=== PATIENT | female | born 1930 | race Caucasian/White ===

== ENCOUNTER 2018-03-27 10:48 | Observation (INO) | payer MEDICARE, OTHER ==
[2018-03-27 11:54] LABS: ADD MAN DIFF? NO
[2018-03-27 11:55] LABS: WHITE BLOOD COUNT 8.5 10^3/ul (4.8-10.8)
[2018-03-27 11:55] LABS: BASOPHILS % 0.2 % (0.0-2.0); EOSINOPHILS # 0.2 10^3/ul (0.0-0.5); EOSINOPHILS % 2.6 % (0.0-7.0); HEMATOCRIT 36.6 % (37.0-47.0); HEMOGLOBIN 11.3 g/dl (12.0-16.0); LYMPHOCYTES # 1.2 10^3/ul (0.8-2.9); LYMPHOCYTES % 14.1 % (15.0-51.0); MEAN CORPUSCULAR HEMOGLOBIN 28.3 pg (29.0-33.0); MEAN CORPUSCULAR HGB CONC 30.9 g/dl (32.0-37.0); MEAN CORPUSCULAR VOLUME 91.7 fl (82.0-101.0); MEAN PLATELET VOLUME 9.4 fl (7.4-10.4); MONOCYTE # 0.5 10^3/ul (0.3-0.9); MONOCYTES % 6.3 % (0.0-11.0); NEUTROPHIL # 6.5 10^3/ul (1.6-7.5); NEUTROPHILS % 76.4 % (39.0-77.0); PLATELET COUNT 288 10^3/UL (140-415); RED BLOOD COUNT 3.99 10^6/ul (4.20-5.40); RED CELL DISTRIBUTION WIDTH 13.5 % (11.5-14.5)
[2018-03-27 12:13] LABS: ALANINE AMINOTRANSFERASE 8 IU/L (13-69); ALBUMIN 4.1 g/dl (3.3-4.9); ALBUMIN/GLOBULIN RATIO 1.07; ALKALINE PHOSPHATASE 81 IU/L (42-121); ANION GAP 8 (5-13); ASPARTATE AMINO TRANSFERASE 26 IU/L (15-46); BILIRUBIN,INDIRECT 0.3 mg/dl (0-1.1); BILIRUBIN,TOTAL 0.3 mg/dl (0.2-1.3); BLOOD UREA NITROGEN 11 mg/dl (7-20); CALCIUM 9.3 mg/dl (8.4-10.2); CARBON DIOXIDE 38 mmol/L (21-31); CHLORIDE 87 mmol/L (97-110); CREATININE 0.59 mg/dl (0.44-1.00); GLUCOSE 128 mg/dl (70-220); POTASSIUM 4.7 mmol/L (3.5-5.1); SODIUM 133 mmol/L (135-144); TOTAL PROTEIN 7.9 g/dl (6.1-8.1)
[2018-03-27 12:15] LABS: INR 0.89; PROTIME 12.2 Sec (11.9-14.9)
[2018-03-27 12:16] LABS: PARTIAL THROMBOPLASTIN TIME 38.1 Sec (23.0-35.0)
[2018-03-27 12:25] LABS: TROPONIN-I 0.016 ng/ml (0.000-0.120)
[2018-03-27] MEDS ORDERED: ACETAMINOPHEN 325 MG TAB PO (13:00)
[2018-03-27] MEDS ORDERED: ONDANSETRON 4 MG INJ IV ×2 (13:00→14:00)
[2018-03-27] MEDS ORDERED: ALBUTEROL/IPRATROPIUM (NEB) 3 ML AMP INH ×2 (14:00→15:00)
[2018-03-27] MEDS: SOD CHLORIDE 0.9% 1,000 ML IV (14:56)
[2018-03-27 16:56] LABS: LACTIC ACID 1.3 mmol/L (0.5-2.0)
[2018-03-27 16:57] LABS: CREATINE KINASE 21 IU/L (23-200)
[2018-03-27] MEDS ORDERED: hydrALAzine 20 MG INJ IV (17:00)
[2018-03-27 17:07] LABS: B-TYPE NATRIURETIC PEPTIDE 236 PG/ML (0-450)
[2018-03-27 17:09] LABS: CK INDEX 4.5; CK-MB 0.94 ng/ml (0.0-2.4); TROPONIN-I 0.055 ng/ml (0.000-0.120)
[2018-03-27] MEDS: FUROSEMIDE 20 MG INJ IV (17:51)
[2018-03-27] MEDS ORDERED: LEVOFLOXACIN 500MG/D5W (PMX) 100 ML IVPB (18:00)
[2018-03-27] MEDS: METHYLPREDNISOLONE 40 MG INJ IV (18:03)
[2018-03-27] MEDS: LEVOFLOXACIN 500MG/D5W (PMX) 100 ML IVPB (18:03)
[2018-03-27 18:31] LABS: ADD UMIC YES; UR AMORPHOUS CRYSTAL MANY /HPF (NONE SEEN); UR ASCORBIC ACID NEGATIVE (NEGATIVE); UR BACTERIA FEW /HPF (NONE SEEN); UR BILIRUBIN (Dip) NEGATIVE (NEGATIVE); UR BLOOD (Dip) NEGATIVE (NEGATIVE); UR CLARITY CLOUDY (CLEAR); UR COLOR YELLOW (YELLOW); UR GLUCOSE (Dip) NEGATIVE (NEGATIVE); UR KETONES (Dip) NEGATIVE (NEGATIVE); UR LEUKOCYTE ESTERASE (Dip) NEGATIVE Leu/ul (NEGATIVE); UR MUCUS FEW /HPF (NONE SEEN); UR NITRITE (Dip) NEGATIVE (NEGATIVE); UR RBC 2 /HPF (0-5); UR SQUAMOUS EPITHELIAL CELL FEW /HPF (FEW); UR TOTAL PROTEIN (Dip) NEGATIVE (NEGATIVE); UR UROBILINOGEN (Dip) NEGATIVE (NEGATIVE); UR WBC 2 /HPF (0-5)
[2018-03-27 18:48] LABS: SODIUM,URINE RANDOM 102 mmol/L (30-90)
[2018-03-27] MEDS: ALBUTEROL/IPRATROPIUM (NEB) 3 ML AMP HHN (20:05)
[2018-03-27] MEDS: BUDESONIDE (NEB) 0.25 MG/2 ML AMP INH (20:11)
[2018-03-27] MEDS ORDERED: FORMOTEROL FUMARATE 20 MCG INHALATION (21:00)
[2018-03-27] MEDS ORDERED: IPRATROPIUM (NEB) 0.5 MG/2.5 ML AMP HHN (21:00)
[2018-03-27] MEDS: FAMOTIDINE 20 MG TAB PO (21:59)
[2018-03-27] MEDS: ATORVASTATIN 10 MG TAB PO (21:59)
[2018-03-27 22:30] LABS: CREATINE KINASE 28 IU/L (23-200)
[2018-03-27] MEDS ORDERED: ARTIFICIAL TEARS 15 ML OPH BOTH EYES ×2 (22:30→23:00)
[2018-03-27 22:43] LABS: CK INDEX 2.9; CK-MB 0.82 ng/ml (0.0-2.4); TROPONIN-I 0.032 ng/ml (0.000-0.120)
[2018-03-28] MEDS: traZODone 50 MG TAB PO (00:39)
[2018-03-28] MEDS: ALBUTEROL/IPRATROPIUM (NEB) 3 ML AMP HHN ×4 (02:00→20:32)
[2018-03-28] MEDS: LEVOTHYROXINE 88 MCG TAB PO (06:15)
[2018-03-28] MEDS: BUDESONIDE (NEB) 0.25 MG/2 ML AMP INH ×2 (08:22→20:32)
[2018-03-28 08:27] LABS: ADD MAN DIFF? NO
[2018-03-28 08:33] LABS: BASOPHILS % 0.4 % (0.0-2.0); EOSINOPHILS # 0.3 10^3/ul (0.0-0.5); EOSINOPHILS % 4.8 % (0.0-7.0); HEMATOCRIT 32.6 % (37.0-47.0); HEMOGLOBIN 10.3 g/dl (12.0-16.0); LYMPHOCYTES # 1.5 10^3/ul (0.8-2.9); LYMPHOCYTES % 25.9 % (15.0-51.0); MEAN CORPUSCULAR HEMOGLOBIN 28.1 pg (29.0-33.0); MEAN CORPUSCULAR HGB CONC 31.6 g/dl (32.0-37.0); MEAN CORPUSCULAR VOLUME 89.1 fl (82.0-101.0); MEAN PLATELET VOLUME 9.1 fl (7.4-10.4); MONOCYTE # 0.5 10^3/ul (0.3-0.9); MONOCYTES % 8.7 % (0.0-11.0); NEUTROPHIL # 3.4 10^3/ul (1.6-7.5); NEUTROPHILS % 59.8 % (39.0-77.0); PLATELET COUNT 278 10^3/UL (140-415); RED BLOOD COUNT 3.66 10^6/ul (4.20-5.40); RED CELL DISTRIBUTION WIDTH 13.4 % (11.5-14.5)
[2018-03-28 08:33] LABS: WHITE BLOOD COUNT 5.6 10^3/ul (4.8-10.8)
[2018-03-28] MEDS: METHYLPREDNISOLONE 40 MG INJ IV (08:34)
[2018-03-28] MEDS: FAMOTIDINE 20 MG TAB PO ×2 (08:34→21:22)
[2018-03-28] MEDS: ASPIRIN 81 MG TAB PO (08:35)
[2018-03-28] MEDS: CHOLECALCIFEROL 1,000 UNIT TAB PO (08:35)
[2018-03-28 08:47] LABS: IRON 57 ug/dl (35-150)
[2018-03-28 08:47] LABS: LACTIC ACID 0.7 mmol/L (0.5-2.0)
[2018-03-28 08:50] LABS: ANION GAP 6 (5-13); BLOOD UREA NITROGEN 12 mg/dl (7-20); CALCIUM 8.7 mg/dl (8.4-10.2); CARBON DIOXIDE 37 mmol/L (21-31); CHLORIDE 87 mmol/L (97-110); CREATININE 0.54 mg/dl (0.44-1.00); GLUCOSE 101 mg/dl (70-220); MAGNESIUM 1.8 mg/dl (1.7-2.5); POTASSIUM 4.6 mmol/L (3.5-5.1); SODIUM 130 mmol/L (135-144)
[2018-03-28 08:57] LABS: % IRON SATURATION 22 % SAT (22-52); TOTAL IRON BINDING CAPACITY 257 ug/dl (241-421)
[2018-03-28 09:04] LABS: FREE T4 (FREE THYROXINE) 1.07 ng/dl (0.85-1.93)
[2018-03-28] MEDS: ENOXAPARIN 30 MG/0.3 ML SYG SC (09:09)
[2018-03-28] MEDS: INFLUENZA VIRUS VACCINE 0.5 ML (DISPENSING) IM* (09:11)
[2018-03-28] MEDS: LEVOFLOXACIN 250MG/D5W (PMX) 50 ML IVPB (18:00)
[2018-03-28] MEDS: FORMETEROL HHN (20:34)
[2018-03-28] MEDS: ATORVASTATIN 10 MG TAB PO (21:22)
[2018-03-28] MEDS: BENAZEPRIL 10 MG TAB PO (21:23)
[2018-03-29] MEDS: ALBUTEROL/IPRATROPIUM (NEB) 3 ML AMP HHN ×2 (02:50→08:28)
[2018-03-29] MEDS: LEVOTHYROXINE 88 MCG TAB PO (08:07)
[2018-03-29] MEDS: FAMOTIDINE 20 MG TAB PO (08:51)
[2018-03-29] MEDS: ASPIRIN 81 MG TAB PO (08:51)
[2018-03-29] MEDS: CHOLECALCIFEROL 1,000 UNIT TAB PO (08:52)
[2018-03-29] MEDS: METHYLPREDNISOLONE 40 MG INJ IV (08:52)
[2018-03-29] MEDS: BENAZEPRIL 10 MG TAB PO (08:52)
[2018-03-29] MEDS: ENOXAPARIN 30 MG/0.3 ML SYG SC (09:02)
== END 2018-03-29 10:16 | disposition home or self-care (01) ==
LOC: E/R 10:48 → TEL 12:50
DX: J84.112 Idiopathic pulmonary fibrosis (principal); E03.9 Hypothyroidism, unspecified; D64.9 Anemia, unspecified; R94.31 Abnormal electrocardiogram [ECG] [EKG]; E78.5 Hyperlipidemia, unspecified; E87.1 Hypo-osmolality and hyponatremia; F03.90 Unspecified dementia, unspecified severity, without behavioral disturbance, psychotic disturbance, mood disturbance, and anxiety; Z79.82 Long term (current) use of aspirin
CPT/HCPCS: 36415; 71045; 80048; 80053; 81001; 82550; 82553; 83540; 83605; 83735; 83880; 84300; 84439; 84443; 84484; 85025; 85610; 85730; 87040; 87086; 87400; 90686; 93005; 93306; 93880; 94640; 94664; 97161; 99285-25; G0378

== ENCOUNTER 2018-04-25 23:35 | Inpatient (IN) | payer MEDICARE, OTHER ==
[2018-04-25] MEDS: VANCOMYCIN 1 GM (PMX) 250 ML IVPB (23:52)
[2018-04-26] MEDS: ALBUTEROL 0.083% (NEB) 2.5 MG/3 ML AMP INH (00:15)
[2018-04-26 00:16] LABS: ADD MAN DIFF? NO
[2018-04-26 00:17] LABS: BASOPHILS % 0.3 % (0.0-2.0); EOSINOPHILS % 0.5 % (0.0-7.0); HEMOGLOBIN 11.4 g/dl (12.0-16.0); LYMPHOCYTES # 0.8 10^3/ul (0.8-2.9); LYMPHOCYTES % 12.8 % (15.0-51.0); MEAN CORPUSCULAR HEMOGLOBIN 28.1 pg (29.0-33.0); MEAN CORPUSCULAR HGB CONC 31.7 g/dl (32.0-37.0); MEAN CORPUSCULAR VOLUME 88.9 fl (82.0-101.0); MEAN PLATELET VOLUME 8.9 fl (7.4-10.4); MONOCYTE # 0.7 10^3/ul (0.3-0.9); MONOCYTES % 11.4 % (0.0-11.0); NEUTROPHIL # 4.8 10^3/ul (1.6-7.5); NEUTROPHILS % 74.5 % (39.0-77.0); PLATELET COUNT 263 10^3/UL (140-415); RED BLOOD COUNT 4.05 10^6/ul (4.20-5.40); RED CELL DISTRIBUTION WIDTH 13.3 % (11.5-14.5)
[2018-04-26 00:17] LABS: WHITE BLOOD COUNT 6.4 10^3/ul (4.8-10.8)
[2018-04-26] MEDS: CEFEPIME 1GM/50 ML (PMX) 50 ML IVPB (00:20)
[2018-04-26 00:49] LABS: ALANINE AMINOTRANSFERASE 23 IU/L (13-69); ALBUMIN 3.7 g/dl (3.3-4.9); ALBUMIN/GLOBULIN RATIO 1.02; ALKALINE PHOSPHATASE 84 IU/L (42-121); ASPARTATE AMINO TRANSFERASE 37 IU/L (15-46); BILIRUBIN,INDIRECT 0.2 mg/dl (0-1.1); BILIRUBIN,TOTAL 0.2 mg/dl (0.2-1.3); BLOOD UREA NITROGEN 16 mg/dl (7-20); CALCIUM 8.7 mg/dl (8.4-10.2); CHLORIDE 77 mmol/L (97-110); GLUCOSE 97 mg/dl (70-220); POTASSIUM 5.7 mmol/L (3.5-5.1); TOTAL PROTEIN 7.3 g/dl (6.1-8.1)
[2018-04-26 00:56] LABS: ANION GAP 3 (5-13)
[2018-04-26 01:00] LABS: B-TYPE NATRIURETIC PEPTIDE 1060 PG/ML (0-450); TROPONIN-I 0.046 ng/ml (0.000-0.120)
[2018-04-26 01:05] LABS: CARBON DIOXIDE 39 mmol/L (21-31); SODIUM 119 mmol/L (135-144)
[2018-04-26] MEDS: SOD CHLORIDE 0.9% 500 ML IV (02:05)
[2018-04-26] MEDS ORDERED: ONDANSETRON 4 MG INJ IV ×2 (02:30→03:00)
[2018-04-26] MEDS ORDERED: ACETAMINOPHEN 325 MG TAB PO ×2 (02:30→03:00)
[2018-04-26] MEDS ORDERED: NACL 0.9% 3 ML SYG IV (03:00)
[2018-04-26] MEDS: SOD CHLORIDE 0.9% 1,000 ML IV (05:29)
[2018-04-26 05:42] LABS: ADD MAN DIFF? NO
[2018-04-26 05:44] LABS: WHITE BLOOD COUNT 6.2 10^3/ul (4.8-10.8)
[2018-04-26 05:44] LABS: ABNORMAL IP MESSAGE 1; BASOPHILS % 0.5 % (0.0-2.0); EOSINOPHILS % 0.3 % (0.0-7.0); HEMATOCRIT 37.3 % (37.0-47.0); HEMOGLOBIN 11.5 g/dl (12.0-16.0); LYMPHOCYTES # 0.5 10^3/ul (0.8-2.9); MEAN CORPUSCULAR HEMOGLOBIN 28.1 pg (29.0-33.0); MEAN CORPUSCULAR HGB CONC 30.8 g/dl (32.0-37.0); MEAN CORPUSCULAR VOLUME 91.2 fl (82.0-101.0); MEAN PLATELET VOLUME 8.7 fl (7.4-10.4); MONOCYTE # 0.6 10^3/ul (0.3-0.9); MONOCYTES % 9.1 % (0.0-11.0); NEUTROPHILS % 81.8 % (39.0-77.0); PLATELET COUNT 240 10^3/UL (140-415); RED BLOOD COUNT 4.09 10^6/ul (4.20-5.40); RED CELL DISTRIBUTION WIDTH 13.5 % (11.5-14.5)
[2018-04-26 05:49] LABS: POSITIVE DIFF @See below
[2018-04-26 05:55] LABS: URIC ACID 3.1 mg/dl (3.1-7.9)
[2018-04-26 06:08] LABS: ALANINE AMINOTRANSFERASE 21 IU/L (13-69); ALBUMIN 3.6 g/dl (3.3-4.9); ALBUMIN/GLOBULIN RATIO 1.02; ALKALINE PHOSPHATASE 88 IU/L (42-121); ASPARTATE AMINO TRANSFERASE 31 IU/L (15-46); BILIRUBIN,INDIRECT 0.1 mg/dl (0-1.1); BILIRUBIN,TOTAL 0.1 mg/dl (0.2-1.3); BLOOD UREA NITROGEN 14 mg/dl (7-20); CALCIUM 8.6 mg/dl (8.4-10.2); CHLORIDE 79 mmol/L (97-110); CHOL/HDL RATIO 1.7 RATIO; CHOLESTEROL 106 mg/dl (100-200); CREATININE 0.52 mg/dl (0.44-1.00); GLUCOSE 111 mg/dl (70-220); HDL CHOLESTEROL 59 mg/dl (33-92); LDL CHOLESTEROL,CALCULATED 40 mg/dl; POTASSIUM 4.9 mmol/L (3.5-5.1); SODIUM 123 mmol/L (135-144); TOTAL PROTEIN 7.1 g/dl (6.1-8.1); TRIGLYCERIDES 35 mg/dl (0-149)
[2018-04-26] MEDS: LEVOTHYROXINE 88 MCG TAB PO (06:13)
[2018-04-26 06:19] LABS: ANION GAP 3 (5-13); CARBON DIOXIDE 41 mmol/L (21-31)
[2018-04-26 06:22] LABS: OSMOLALITY 260 mOsm/kg (280-295)
[2018-04-26] MEDS: ALBUTEROL/IPRATROPIUM (NEB) 3 ML AMP INH ×3 (08:06→21:03)
[2018-04-26] MEDS: ASPIRIN (EC) 325 MG TAB PO (08:47)
[2018-04-26 08:48] LABS: AADO2 Arterial 40.6 mmHg (7.0-24.0); Arterial Base Excess 9.2 mmol/L (-3.0-3); Arterial Blood Gas Oxygen Sat 97.8 mmHG (95.0-100.0); Arterial COHb 0.4 % (0.0-3.0); Arterial Fraction of Oxyhgb 97.1 % (93.0-99.0); Arterial HCO3 39.5 mmol/L (22.0-26.0); Arterial MetHb 0.3 % (0.0-1.5); Arterial pCO2 91.4 mmhg (35-45); MODE NASAL CANNULA; Site Right Brachial
[2018-04-26] MEDS: CHOLECALCIFEROL 1,000 UNIT TAB PO (08:48)
[2018-04-26] MEDS ORDERED: METHYLPREDNISOLONE 125 MG INJ IV (09:00)
[2018-04-26] MEDS ORDERED: ARFORMOTEROL TARTRATE 15MCG/2 ML AMP INH (09:00)
[2018-04-26] MEDS ORDERED: IPRATROPIUM (NEB) 0.5 MG/2.5 ML AMP INH (09:00)
[2018-04-26 09:09] LABS: URIC ACID 3.3 mg/dl (3.1-7.9)
[2018-04-26] MEDS ORDERED: METHYLPREDNISOLONE 40 MG INJ IV (10:00)
[2018-04-26] MEDS ORDERED: ALBUTEROL/IPRATROPIUM (NEB) 3 ML AMP HHN (10:00)
[2018-04-26] MEDS: METHYLPREDNISOLONE 125 MG INJ IV (10:29)
[2018-04-26] MEDS: FUROSEMIDE 20 MG INJ IV (10:30)
[2018-04-26] MEDS: PIPER-TAZO 3.375 GM IV (PMX) 100 ML IVPB ×3 (11:17→23:31)
[2018-04-26 12:11] LABS: BLOOD UREA NITROGEN 13 mg/dl (7-20); CALCIUM 8.4 mg/dl (8.4-10.2); CHLORIDE 81 mmol/L (97-110); CREATININE 0.53 mg/dl (0.44-1.00); GLUCOSE 108 mg/dl (70-220); POTASSIUM 5.2 mmol/L (3.5-5.1); SODIUM 126 mmol/L (135-144)
[2018-04-26 12:18] LABS: ANION GAP 10 (5-13)
[2018-04-26 12:23] LABS: CARBON DIOXIDE 35 mmol/L (21-31)
[2018-04-26 14:36] LABS: ADD UMIC NO; UR ASCORBIC ACID NEGATIVE (NEGATIVE); UR BILIRUBIN (Dip) NEGATIVE (NEGATIVE); UR BLOOD (Dip) NEGATIVE (NEGATIVE); UR CLARITY CLEAR (CLEAR); UR COLOR YELLOW (YELLOW); UR GLUCOSE (Dip) NEGATIVE (NEGATIVE); UR KETONES (Dip) NEGATIVE (NEGATIVE); UR LEUKOCYTE ESTERASE (Dip) NEGATIVE Leu/ul (NEGATIVE); UR NITRITE (Dip) NEGATIVE (NEGATIVE); UR TOTAL PROTEIN (Dip) NEGATIVE (NEGATIVE); UR UROBILINOGEN (Dip) NEGATIVE (NEGATIVE)
[2018-04-26 14:55] LABS: POTASSIUM,URINE RANDOM 44.9 mmol/L (25-125)
[2018-04-26 14:55] LABS: SODIUM,URINE RANDOM 81 mmol/L (30-90)
[2018-04-26 15:05] LABS: OSMOLALITY,URINE 382 mOsm/kg (250-1200)
[2018-04-26 15:07] LABS: AMPHETAMINE/METHAMPHETAMINE Negative (NEGATIVE); BARBITURATES Negative (NEGATIVE); BENZODIAZEPINES Negative (NEGATIVE); CANNABINOIDS Negative (NEGATIVE); COCAINE Negative (NEGATIVE); OPIATES Negative (NEGATIVE)
[2018-04-26 15:16] LABS: SODIUM,URINE RANDOM 82 mmol/L (30-90)
[2018-04-26 15:16] LABS: CREATININE,URINE RANDOM 35.35 mg/dl (20-320)
[2018-04-26 16:11] LABS: AADO2 Arterial 164.3 mmHg (7.0-24.0); Allen Test ACCEPTAB; Arterial Base Excess 10.2 mmol/L (-3.0-3); Arterial Blood Gas Oxygen Sat 96.5 mmHG (95.0-100.0); Arterial COHb 0.8 % (0.0-3.0); Arterial Fraction of Oxyhgb 95.4 % (93.0-99.0); Arterial HCO3 40.9 mmol/L (22.0-26.0); Arterial MetHb 0.3 % (0.0-1.5); Arterial pCO2 92.3 mmhg (35-45); Blood Gas IEPAP 15/5; Blood Gas PS 10; MODE MASK - BIPAP; Site Right Radial
[2018-04-26] MEDS: BUDESONIDE (NEB) 0.25 MG/2 ML AMP INH ×2 (16:34→21:03)
[2018-04-26] MEDS: DEXTROSE 5%-0.9% NACL 1,000 ML IV (16:36)
[2018-04-26 20:49] LABS: AADO2 Arterial 87.9 mmHg (7.0-24.0); Allen Test ACCEPTAB; Arterial Base Excess 11.1 mmol/L (-3.0-3); Arterial Blood Gas Oxygen Sat 96.2 mmHG (95.0-100.0); Arterial COHb 0.3 % (0.0-3.0); Arterial Fraction of Oxyhgb 95.6 % (93.0-99.0); Arterial HCO3 41.7 mmol/L (22.0-26.0); Arterial MetHb 0.3 % (0.0-1.5); Arterial pCO2 95.6 mmhg (35-45); Blood Gas IEPAP 20/8; Blood Gas PS 13; MODE MASK - BIPAP; Site Left Radial
[2018-04-26] MEDS ORDERED: NON-FORMULARY/PATIENT OWN MED (Simvastatin* (Zocor*) 20 MG) PO (21:00)
[2018-04-26] MEDS: ATORVASTATIN 10 MG TAB PO (21:00)
[2018-04-26] MEDS: METHYLPREDNISOLONE 40 MG INJ IV (21:33)
[2018-04-27] MEDS ORDERED: VANCOMYCIN IV PER PHARMACY XX (01:00)
[2018-04-27] MEDS: VANCOMYCIN 1 GM 250 ML IVPB (01:24)
[2018-04-27] MEDS: ALBUTEROL/IPRATROPIUM (NEB) 3 ML AMP INH ×4 (02:02→20:09)
[2018-04-27] MEDS: PIPER-TAZO 3.375 GM IV (PMX) 100 ML IVPB ×3 (05:12→18:01)
[2018-04-27 05:13] LABS: WHITE BLOOD COUNT 4.1 10^3/ul (4.8-10.8)
[2018-04-27 05:13] LABS: ABNORMAL IP MESSAGE 1; ADD MAN DIFF? NO; HEMATOCRIT 32.9 % (37.0-47.0); HEMOGLOBIN 10.2 g/dl (12.0-16.0); LYMPHOCYTES # 0.3 10^3/ul (0.8-2.9); LYMPHOCYTES % 7.2 % (15.0-51.0); MEAN CORPUSCULAR HEMOGLOBIN 27.7 pg (29.0-33.0); MEAN CORPUSCULAR VOLUME 89.4 fl (82.0-101.0); MEAN PLATELET VOLUME 9.2 fl (7.4-10.4); MONOCYTE # 0.1 10^3/ul (0.3-0.9); MONOCYTES % 2.7 % (0.0-11.0); NEUTROPHIL # 3.6 10^3/ul (1.6-7.5); NEUTROPHILS % 89.6 % (39.0-77.0); PLATELET COUNT 242 10^3/UL (140-415); RED BLOOD COUNT 3.68 10^6/ul (4.20-5.40); RED CELL DISTRIBUTION WIDTH 13.2 % (11.5-14.5)
[2018-04-27 05:36] LABS: POSITIVE DIFF @See below
[2018-04-27 05:46] LABS: BLOOD UREA NITROGEN 15 mg/dl (7-20); CALCIUM 8.3 mg/dl (8.4-10.2); CHLORIDE 80 mmol/L (97-110); CREATININE 0.52 mg/dl (0.44-1.00); GLUCOSE 139 mg/dl (70-220); MAGNESIUM 1.9 mg/dl (1.7-2.5); PHOSPHORUS 3.7 mg/dl (2.5-4.9); POTASSIUM 4.5 mmol/L (3.5-5.1); SODIUM 126 mmol/L (135-144)
[2018-04-27 05:53] LABS: ANION GAP 6 (5-13)
[2018-04-27 06:06] LABS: CARBON DIOXIDE 40 mmol/L (21-31)
[2018-04-27] MEDS: ASPIRIN (EC) 325 MG TAB PO (08:23)
[2018-04-27] MEDS: DEXTROSE 5%-0.9% NACL 1,000 ML IV (08:23)
[2018-04-27] MEDS: METHYLPREDNISOLONE 40 MG INJ IV (08:23)
[2018-04-27] MEDS: CHOLECALCIFEROL 1,000 UNIT TAB PO (08:24)
[2018-04-27] MEDS: LEVOTHYROXINE 88 MCG TAB PO (08:24)
[2018-04-27] MEDS: ENOXAPARIN 40 MG/0.4 ML SYG SC (08:25)
[2018-04-27 09:05] LABS: AADO2 Arterial 118.1 mmHg (7.0-24.0); Allen Test ACCEPTAB; Arterial Base Excess 14.7 mmol/L (-3.0-3); Arterial Blood Gas Oxygen Sat 94.9 mmHG (95.0-100.0); Arterial COHb 0.5 % (0.0-3.0); Arterial Fraction of Oxyhgb 94.2 % (93.0-99.0); Arterial HCO3 43.1 mmol/L (22.0-26.0); Arterial MetHb 0.2 % (0.0-1.5); Blood Gas IEPAP 20/8; Blood Gas PS 12; MODE MASK - BIPAP; Site Right Radial
[2018-04-27] MEDS: BUMETANIDE 1 MG INJ IV (10:07)
[2018-04-27] MEDS: BUDESONIDE (NEB) 0.25 MG/2 ML AMP INH ×2 (11:56→20:00)
[2018-04-27] MEDS ORDERED: METHYLPREDNISOLONE 40 MG INJ IV (21:00)
[2018-04-27] MEDS: SOD CHLORIDE 0.9% IV (21:47)
[2018-04-27] MEDS: METHYLPRED NA SUCC IV (21:47)
[2018-04-27] MEDS: ATORVASTATIN 10 MG TAB PO (21:47)
[2018-04-28] MEDS: PIPER-TAZO 3.375 GM IV (PMX) 100 ML IVPB ×5 (00:40→23:33)
[2018-04-28] MEDS: ALBUTEROL/IPRATROPIUM (NEB) 3 ML AMP INH ×4 (01:48→19:49)
[2018-04-28 05:08] LABS: AADO2 Arterial 108.7 mmHg (7.0-24.0); Allen Test ACCEPTAB; Arterial Base Excess 13.8 mmol/L (-3.0-3); Arterial Blood Gas Oxygen Sat 97.8 mmHG (95.0-100.0); Arterial COHb 0.9 % (0.0-3.0); Arterial Fraction of Oxyhgb 96.7 % (93.0-99.0); Arterial MetHb 0.2 % (0.0-1.5); Arterial pCO2 68.8 mmhg (35-45); Blood Gas IEPAP 20/8; Blood Gas PS 12; MODE BIPAP - S/T; Site Left Radial
[2018-04-28 05:22] LABS: ADD MAN DIFF? NO
[2018-04-28 05:42] LABS: ABNORMAL IP MESSAGE 1; HEMOGLOBIN 10.2 g/dl (12.0-16.0); LYMPHOCYTES # 0.2 10^3/ul (0.8-2.9); LYMPHOCYTES % 3.5 % (15.0-51.0); MEAN CORPUSCULAR HEMOGLOBIN 27.6 pg (29.0-33.0); MEAN CORPUSCULAR HGB CONC 30.9 g/dl (32.0-37.0); MEAN CORPUSCULAR VOLUME 89.4 fl (82.0-101.0); MEAN PLATELET VOLUME 9.1 fl (7.4-10.4); MONOCYTE # 0.1 10^3/ul (0.3-0.9); NEUTROPHIL # 5.1 10^3/ul (1.6-7.5); NEUTROPHILS % 94.1 % (39.0-77.0); PLATELET COUNT 248 10^3/UL (140-415); RED BLOOD COUNT 3.69 10^6/ul (4.20-5.40); RED CELL DISTRIBUTION WIDTH 13.2 % (11.5-14.5)
[2018-04-28 05:42] LABS: WHITE BLOOD COUNT 5.4 10^3/ul (4.8-10.8)
[2018-04-28 06:06] LABS: BLOOD UREA NITROGEN 18 mg/dl (7-20); CALCIUM 8.4 mg/dl (8.4-10.2); CHLORIDE 78 mmol/L (97-110); CREATININE 0.52 mg/dl (0.44-1.00); GLUCOSE 139 mg/dl (70-220); MAGNESIUM 1.8 mg/dl (1.7-2.5); POTASSIUM 3.9 mmol/L (3.5-5.1); SODIUM 128 mmol/L (135-144)
[2018-04-28 06:12] LABS: POSITIVE DIFF @See below
[2018-04-28 06:29] LABS: ANION GAP 6 (5-13); CARBON DIOXIDE 44 mmol/L (21-31)
[2018-04-28 06:36] LABS: VANCOMYCIN,RANDOM 5.2 ug/ml
[2018-04-28] MEDS: LEVOTHYROXINE 88 MCG TAB PO (08:55)
[2018-04-28] MEDS: CHOLECALCIFEROL 1,000 UNIT TAB PO (08:55)
[2018-04-28] MEDS: ASPIRIN (EC) 325 MG TAB PO (08:55)
[2018-04-28] MEDS: SOD CHLORIDE 0.9% IV ×2 (08:55→21:06)
[2018-04-28] MEDS: METHYLPRED NA SUCC IV ×2 (08:55→21:06)
[2018-04-28] MEDS: ENOXAPARIN 40 MG/0.4 ML SYG SC (08:56)
[2018-04-28] MEDS ORDERED: BUDESONIDE (NEB) 0.5MG/2ML AMP (09:00)
[2018-04-28] MEDS: BUDESONIDE (NEB) 0.5MG/2ML AMP INH ×2 (09:06→19:49)
[2018-04-28] MEDS: VANCOMYCIN 1 GM 250 ML IVPB (10:15)
[2018-04-28] MEDS: ATORVASTATIN 10 MG TAB PO (21:06)
[2018-04-28] MEDS: BALSAM PERU/CASTOR OIL 60 GM TUBE TOP (22:30)
[2018-04-29] MEDS: ALBUTEROL/IPRATROPIUM (NEB) 3 ML AMP INH ×4 (02:18→19:34)
[2018-04-29 04:52] LABS: AADO2 Arterial 97.8 mmHg (7.0-24.0); Allen Test ACCEPTAB; Arterial Base Excess 15.8 mmol/L (-3.0-3); Arterial Blood Gas Oxygen Sat 97.6 mmHG (95.0-100.0); Arterial COHb 0.8 % (0.0-3.0); Arterial Fraction of Oxyhgb 96.4 % (93.0-99.0); Arterial HCO3 44.6 mmol/L (22.0-26.0); Arterial MetHb 0.4 % (0.0-1.5); Arterial pCO2 77.5 mmhg (35-45); Blood Gas IEPAP 20/8; MODE MASK - BIPAP; Site Right Radial
[2018-04-29 05:18] LABS: ADD MAN DIFF? NO
[2018-04-29 05:31] LABS: WHITE BLOOD COUNT 4.6 10^3/ul (4.8-10.8)
[2018-04-29 05:31] LABS: ABNORMAL IP MESSAGE 1; HEMATOCRIT 33.7 % (37.0-47.0); HEMOGLOBIN 10.4 g/dl (12.0-16.0); LYMPHOCYTES # 0.2 10^3/ul (0.8-2.9); MEAN CORPUSCULAR HEMOGLOBIN 27.7 pg (29.0-33.0); MEAN CORPUSCULAR HGB CONC 30.9 g/dl (32.0-37.0); MEAN CORPUSCULAR VOLUME 89.6 fl (82.0-101.0); MEAN PLATELET VOLUME 8.9 fl (7.4-10.4); MONOCYTE # 0.2 10^3/ul (0.3-0.9); MONOCYTES % 3.2 % (0.0-11.0); NEUTROPHIL # 4.2 10^3/ul (1.6-7.5); NEUTROPHILS % 91.6 % (39.0-77.0); PLATELET COUNT 223 10^3/UL (140-415); RED BLOOD COUNT 3.76 10^6/ul (4.20-5.40); RED CELL DISTRIBUTION WIDTH 13.2 % (11.5-14.5)
[2018-04-29 05:44] LABS: LYMPHOCYTES % 4.8 % (15.0-51.0); POSITIVE DIFF @See below
[2018-04-29 05:49] LABS: BLOOD UREA NITROGEN 13 mg/dl (7-20); CALCIUM 8.3 mg/dl (8.4-10.2); CHLORIDE 79 mmol/L (97-110); CREATININE 0.51 mg/dl (0.44-1.00); GLUCOSE 146 mg/dl (70-220); MAGNESIUM 1.9 mg/dl (1.7-2.5); PHOSPHORUS 2.8 mg/dl (2.5-4.9); POTASSIUM 3.5 mmol/L (3.5-5.1); SODIUM 132 mmol/L (135-144)
[2018-04-29 06:28] LABS: ANION GAP 9 (5-13); CARBON DIOXIDE 44 mmol/L (21-31)
[2018-04-29] MEDS: PIPER-TAZO 3.375 GM IV (PMX) 100 ML IVPB ×3 (08:00→17:43)
[2018-04-29] MEDS: BUDESONIDE (NEB) 0.5MG/2ML AMP INH ×2 (08:40→19:34)
[2018-04-29] MEDS: DEXTROSE 5%-0.9% NACL 1,000 ML IV (09:58)
[2018-04-29] MEDS: POTASSIUM CHLORIDE 100 ML IVPB ×2 (09:59→12:05)
[2018-04-29] MEDS: LEVOTHYROXINE 88 MCG TAB PO (09:59)
[2018-04-29] MEDS: CHOLECALCIFEROL 1,000 UNIT TAB PO (09:59)
[2018-04-29] MEDS: ASPIRIN (EC) 325 MG TAB PO (09:59)
[2018-04-29] MEDS: BALSAM PERU/CASTOR OIL 60 GM TUBE TOP ×2 (09:59→20:05)
[2018-04-29] MEDS: VANCOMYCIN 1 GM 250 ML IVPB (10:00)
[2018-04-29] MEDS: METHYLPRED NA SUCC IV ×2 (10:02→20:05)
[2018-04-29] MEDS: SOD CHLORIDE 0.9% IV ×2 (10:02→20:05)
[2018-04-29] MEDS: ENOXAPARIN 40 MG/0.4 ML SYG SC (10:12)
[2018-04-29 13:05] LABS: CREATININE, RANDOM URINE 37 mg/dL (20-275); MICROALBUMIN 5.8 mg/dL; MICROALBUMIN/CREATININE RATIO 157 (<30)
[2018-04-29] MEDS: ATORVASTATIN 10 MG TAB PO (20:05)
[2018-04-30] MEDS: PIPER-TAZO 3.375 GM IV (PMX) 100 ML IVPB ×5 (00:07→23:53)
[2018-04-30] MEDS: ALBUTEROL/IPRATROPIUM (NEB) 3 ML AMP INH ×4 (01:49→20:05)
[2018-04-30 05:24] LABS: ADD MAN DIFF? NO
[2018-04-30 05:34] LABS: ABNORMAL IP MESSAGE 1; HEMATOCRIT 34.2 % (37.0-47.0); HEMOGLOBIN 10.6 g/dl (12.0-16.0); LYMPHOCYTES # 0.2 10^3/ul (0.8-2.9); LYMPHOCYTES % 4.9 % (15.0-51.0); MEAN CORPUSCULAR HEMOGLOBIN 27.6 pg (29.0-33.0); MEAN CORPUSCULAR VOLUME 89.1 fl (82.0-101.0); MONOCYTE # 0.2 10^3/ul (0.3-0.9); MONOCYTES % 4.3 % (0.0-11.0); NEUTROPHIL # 4.2 10^3/ul (1.6-7.5); NEUTROPHILS % 90.2 % (39.0-77.0); PLATELET COUNT 203 10^3/UL (140-415); RED BLOOD COUNT 3.84 10^6/ul (4.20-5.40); RED CELL DISTRIBUTION WIDTH 13.4 % (11.5-14.5)
[2018-04-30 05:34] LABS: WHITE BLOOD COUNT 4.7 10^3/ul (4.8-10.8)
[2018-04-30 05:44] LABS: POSITIVE DIFF @See below
[2018-04-30 05:49] LABS: BLOOD UREA NITROGEN 15 mg/dl (7-20); CALCIUM 8.4 mg/dl (8.4-10.2); CHLORIDE 83 mmol/L (97-110); CREATININE 0.49 mg/dl (0.44-1.00); GLUCOSE 164 mg/dl (70-220); MAGNESIUM 1.9 mg/dl (1.7-2.5); PHOSPHORUS 2.3 mg/dl (2.5-4.9); POTASSIUM 3.6 mmol/L (3.5-5.1); SODIUM 134 mmol/L (135-144)
[2018-04-30 05:58] LABS: ANION GAP 6 (5-13); CARBON DIOXIDE 45 mmol/L (21-31)
[2018-04-30] MEDS: LEVOTHYROXINE 88 MCG TAB PO (06:27)
[2018-04-30] MEDS: BUDESONIDE (NEB) 0.5MG/2ML AMP INH ×2 (07:29→20:05)
[2018-04-30] MEDS: CHOLECALCIFEROL 1,000 UNIT TAB PO (08:14)
[2018-04-30] MEDS: ASPIRIN (EC) 325 MG TAB PO (08:14)
[2018-04-30] MEDS: NEUTRA-PHOS 250 MG PACKET PO (08:14)
[2018-04-30] MEDS: ENOXAPARIN 40 MG/0.4 ML SYG SC (08:15)
[2018-04-30] MEDS: BALSAM PERU/CASTOR OIL 60 GM TUBE TOP ×2 (08:15→22:27)
[2018-04-30] MEDS: SOD CHLORIDE 0.9% IV ×2 (08:15→22:42)
[2018-04-30] MEDS: METHYLPRED NA SUCC IV ×2 (08:15→22:42)
[2018-04-30] MEDS: VANCOMYCIN 1 GM 250 ML IVPB (10:38)
[2018-04-30 11:04] LABS: VANCOMYCIN,TROUGH < 5.0 ug/ml (10.0-20.0)
[2018-04-30] MEDS ORDERED: hydrALAzine 20 MG INJ (12:49)
[2018-04-30] MEDS: hydrALAzine 20 MG INJ IV (12:53)
[2018-04-30] MEDS: POTASSIUM CHLORIDE 100 ML IVPB ×2 (14:05→16:23)
[2018-04-30] MEDS: ATORVASTATIN 10 MG TAB PO (22:27)
[2018-05-01] MEDS: VANCOMYCIN 750 MG (PMX) 250 ML IVPB ×2 (00:36→10:31)
[2018-05-01] MEDS: ALBUTEROL/IPRATROPIUM (NEB) 3 ML AMP INH ×4 (01:18→20:30)
[2018-05-01] MEDS: PIPER-TAZO 3.375 GM IV (PMX) 100 ML IVPB ×4 (06:24→23:26)
[2018-05-01] MEDS: BUDESONIDE (NEB) 0.5MG/2ML AMP INH ×2 (08:01→20:30)
[2018-05-01 08:07] LABS: ADD MAN DIFF? NO
[2018-05-01 08:18] LABS: WHITE BLOOD COUNT 6.3 10^3/ul (4.8-10.8)
[2018-05-01 08:18] LABS: ABNORMAL IP MESSAGE 1; HEMATOCRIT 35.5 % (37.0-47.0); HEMOGLOBIN 11.1 g/dl (12.0-16.0); LYMPHOCYTES # 0.4 10^3/ul (0.8-2.9); LYMPHOCYTES % 6.6 % (15.0-51.0); MEAN CORPUSCULAR HEMOGLOBIN 27.6 pg (29.0-33.0); MEAN CORPUSCULAR HGB CONC 31.3 g/dl (32.0-37.0); MEAN CORPUSCULAR VOLUME 88.3 fl (82.0-101.0); MEAN PLATELET VOLUME 9.7 fl (7.4-10.4); MONOCYTE # 0.2 10^3/ul (0.3-0.9); MONOCYTES % 2.6 % (0.0-11.0); NEUTROPHIL # 5.6 10^3/ul (1.6-7.5); NEUTROPHILS % 89.8 % (39.0-77.0); PLATELET COUNT 220 10^3/UL (140-415); RED BLOOD COUNT 4.02 10^6/ul (4.20-5.40); RED CELL DISTRIBUTION WIDTH 13.5 % (11.5-14.5)
[2018-05-01 08:21] LABS: POSITIVE DIFF @See below
[2018-05-01 08:30] LABS: BLOOD UREA NITROGEN 14 mg/dl (7-20); CALCIUM 8.4 mg/dl (8.4-10.2); CHLORIDE 84 mmol/L (97-110); CREATININE 0.53 mg/dl (0.44-1.00); GLUCOSE 138 mg/dl (70-220); MAGNESIUM 1.8 mg/dl (1.7-2.5); PHOSPHORUS 3.2 mg/dl (2.5-4.9); POTASSIUM 4.1 mmol/L (3.5-5.1); SODIUM 133 mmol/L (135-144)
[2018-05-01 08:37] LABS: ANION GAP 9 (5-13)
[2018-05-01 08:39] LABS: CARBON DIOXIDE 40 mmol/L (21-31)
[2018-05-01] MEDS: ASPIRIN (EC) 325 MG TAB PO (09:34)
[2018-05-01] MEDS: CHOLECALCIFEROL 1,000 UNIT TAB PO (09:35)
[2018-05-01] MEDS: BALSAM PERU/CASTOR OIL 60 GM TUBE TOP ×2 (09:35→20:17)
[2018-05-01] MEDS: LEVOTHYROXINE 88 MCG TAB PO (09:35)
[2018-05-01] MEDS: ENOXAPARIN 40 MG/0.4 ML SYG SC (09:45)
[2018-05-01] MEDS ORDERED: DOCUSATE SODIUM 100 MG CAP PO (10:30)
[2018-05-01] MEDS: POLYETHYLENE GLYCOL 17 GM PACKET PO (10:31)
[2018-05-01] MEDS: SOD CHLORIDE 0.9% IV ×2 (11:52→20:17)
[2018-05-01] MEDS: METHYLPRED NA SUCC IV ×2 (11:52→20:17)
[2018-05-01] MEDS: hydrALAzine 20 MG INJ IV (18:50)
[2018-05-01] MEDS: ATORVASTATIN 10 MG TAB PO (20:16)
[2018-05-02] MEDS: ALBUTEROL/IPRATROPIUM (NEB) 3 ML AMP INH ×4 (01:29→19:44)
[2018-05-02] MEDS: PIPER-TAZO 3.375 GM IV (PMX) 100 ML IVPB ×2 (05:49→11:19)
[2018-05-02] MEDS: BUDESONIDE (NEB) 0.5MG/2ML AMP INH ×2 (08:14→19:44)
[2018-05-02] MEDS: CHOLECALCIFEROL 1,000 UNIT TAB PO (08:54)
[2018-05-02] MEDS: BALSAM PERU/CASTOR OIL 60 GM TUBE TOP ×2 (08:54→21:46)
[2018-05-02] MEDS: LEVOTHYROXINE 88 MCG TAB PO (08:54)
[2018-05-02] MEDS: ASPIRIN (EC) 325 MG TAB PO (08:54)
[2018-05-02] MEDS: POLYETHYLENE GLYCOL 17 GM PACKET PO (08:55)
[2018-05-02] MEDS: SOD CHLORIDE 0.9% IV (08:59)
[2018-05-02] MEDS: METHYLPRED NA SUCC IV (08:59)
[2018-05-02] MEDS: ENOXAPARIN 40 MG/0.4 ML SYG SC (09:11)
[2018-05-02 10:33] LABS: ADD MAN DIFF? NO
[2018-05-02 10:36] LABS: WHITE BLOOD COUNT 7.2 10^3/ul (4.8-10.8)
[2018-05-02 10:36] LABS: ABNORMAL IP MESSAGE 1; BASOPHILS % 0.1 % (0.0-2.0); HEMATOCRIT 37.7 % (37.0-47.0); LYMPHOCYTES # 0.4 10^3/ul (0.8-2.9); LYMPHOCYTES % 5.3 % (15.0-51.0); MEAN CORPUSCULAR HEMOGLOBIN 27.4 pg (29.0-33.0); MEAN CORPUSCULAR HGB CONC 31.8 g/dl (32.0-37.0); MEAN CORPUSCULAR VOLUME 86.1 fl (82.0-101.0); MEAN PLATELET VOLUME 9.3 fl (7.4-10.4); MONOCYTE # 0.4 10^3/ul (0.3-0.9); NEUTROPHIL # 6.4 10^3/ul (1.6-7.5); NEUTROPHILS % 88.8 % (39.0-77.0); PLATELET COUNT 241 10^3/UL (140-415); RED BLOOD COUNT 4.38 10^6/ul (4.20-5.40); RED CELL DISTRIBUTION WIDTH 13.5 % (11.5-14.5)
[2018-05-02 10:38] LABS: POSITIVE DIFF @See below
[2018-05-02 11:04] LABS: ANION GAP 6 (5-13); BLOOD UREA NITROGEN 17 mg/dl (7-20); CALCIUM 8.9 mg/dl (8.4-10.2); CARBON DIOXIDE 39 mmol/L (21-31); CHLORIDE 87 mmol/L (97-110); CREATININE 0.54 mg/dl (0.44-1.00); GLUCOSE 193 mg/dl (70-220); MAGNESIUM 1.8 mg/dl (1.7-2.5); PHOSPHORUS 3.3 mg/dl (2.5-4.9); POTASSIUM 3.1 mmol/L (3.5-5.1); SODIUM 132 mmol/L (135-144)
[2018-05-02] MEDS: METHYLPREDNISOLONE 125 MG INJ IV ×2 (11:30→21:45)
[2018-05-02] MEDS: MAGNESIUM SULFATE 2 GM/50 ML 50 ML IVPB (11:30)
[2018-05-02 14:52] LABS: AADO2 Arterial 85.9 mmHg (7.0-24.0); Allen Test ACCEPTAB; Arterial Base Excess 16.7 mmol/L (-3.0-3); Arterial Blood Gas Oxygen Sat 95.5 mmHG (95.0-100.0); Arterial COHb 0.6 % (0.0-3.0); Arterial Fraction of Oxyhgb 94.5 % (93.0-99.0); Arterial HCO3 43.1 mmol/L (22.0-26.0); Arterial MetHb 0.4 % (0.0-1.5); Arterial pCO2 59.4 mmhg (35-45); MODE NASAL CANNULA; Site Right Radial
[2018-05-02] MEDS ORDERED: VITAMIN A & D 5 GM OINT PACKET TOP (20:12)
[2018-05-02] MEDS: ATORVASTATIN 10 MG TAB PO (21:45)
[2018-05-02] MEDS: CALCIUM/VITAMIN D (500/200) TAB PO (21:45)
[2018-05-03] MEDS: ALBUTEROL/IPRATROPIUM (NEB) 3 ML AMP INH ×4 (01:23→19:44)
[2018-05-03] MEDS: BUDESONIDE (NEB) 0.5MG/2ML AMP INH ×2 (08:22→19:44)
[2018-05-03] MEDS: CALCIUM/VITAMIN D (500/200) TAB PO ×2 (08:51→20:04)
[2018-05-03] MEDS: ASPIRIN (EC) 325 MG TAB PO (08:51)
[2018-05-03] MEDS: LEVOTHYROXINE 88 MCG TAB PO (08:51)
[2018-05-03] MEDS: METHYLPREDNISOLONE 125 MG INJ IV (08:52)
[2018-05-03] MEDS: BALSAM PERU/CASTOR OIL 60 GM TUBE TOP ×2 (08:53→20:27)
[2018-05-03] MEDS: POLYETHYLENE GLYCOL 17 GM PACKET PO (09:00)
[2018-05-03] MEDS: ENOXAPARIN 40 MG/0.4 ML SYG SC (09:21)
[2018-05-03 09:27] LABS: BLOOD UREA NITROGEN 23 mg/dl (7-20); CALCIUM 8.8 mg/dl (8.4-10.2); CHLORIDE 87 mmol/L (97-110); CREATININE 0.62 mg/dl (0.44-1.00); GLUCOSE 131 mg/dl (70-220); MAGNESIUM 2.5 mg/dl (1.7-2.5); PHOSPHORUS 5.1 mg/dl (2.5-4.9); SODIUM 133 mmol/L (135-144)
[2018-05-03 09:34] LABS: ANION GAP 9 (5-13)
[2018-05-03 09:55] LABS: CARBON DIOXIDE 37 mmol/L (21-31)
[2018-05-03] MEDS: METHYLPREDNISOLONE 40 MG INJ IV ×2 (14:53→22:13)
[2018-05-03] MEDS: ATORVASTATIN 10 MG TAB PO (20:04)
[2018-05-04] MEDS: ALBUTEROL/IPRATROPIUM (NEB) 3 ML AMP INH ×4 (01:04→19:50)
[2018-05-04] MEDS: METHYLPREDNISOLONE 40 MG INJ IV ×3 (06:01→22:30)
[2018-05-04] MEDS: BUDESONIDE (NEB) 0.5MG/2ML AMP INH ×2 (08:25→19:50)
[2018-05-04] MEDS: BALSAM PERU/CASTOR OIL 60 GM TUBE TOP ×2 (09:00→22:29)
[2018-05-04] MEDS: ASPIRIN (EC) 325 MG TAB PO (09:17)
[2018-05-04] MEDS: CALCIUM/VITAMIN D (500/200) TAB PO ×2 (09:17→20:46)
[2018-05-04] MEDS: LEVOTHYROXINE 88 MCG TAB PO (09:17)
[2018-05-04] MEDS: ENOXAPARIN 40 MG/0.4 ML SYG SC (09:23)
[2018-05-04] MEDS: POLYETHYLENE GLYCOL 17 GM PACKET PO (09:25)
[2018-05-04] MEDS: ATORVASTATIN 10 MG TAB PO (20:46)
[2018-05-04] MEDS ORDERED: LORAZEPAM 2 MG INJ IV (23:30)
[2018-05-05] MEDS: ALBUTEROL/IPRATROPIUM (NEB) 3 ML AMP INH ×4 (01:45→20:54)
[2018-05-05] MEDS: LEVOTHYROXINE 88 MCG TAB PO (05:27)
[2018-05-05] MEDS: BUDESONIDE (NEB) 0.5MG/2ML AMP INH ×2 (08:25→20:55)
[2018-05-05] MEDS: BALSAM PERU/CASTOR OIL 60 GM TUBE TOP ×2 (09:00→20:42)
[2018-05-05] MEDS ORDERED: POTASSIUM CHLORIDE (SR) 20 MEQ TAB PO (09:49)
[2018-05-05] MEDS: METHYLPREDNISOLONE 40 MG INJ IV ×2 (10:00→20:41)
[2018-05-05] MEDS: POLYETHYLENE GLYCOL 17 GM PACKET PO (10:00)
[2018-05-05] MEDS ORDERED: SOD CHLORIDE 0.9% 1,000 ML IV (10:00)
[2018-05-05] MEDS: ASPIRIN (EC) 325 MG TAB PO (10:01)
[2018-05-05] MEDS: CALCIUM/VITAMIN D (500/200) TAB PO ×2 (10:01→20:41)
[2018-05-05] MEDS: ENOXAPARIN 40 MG/0.4 ML SYG SC (10:02)
[2018-05-05] MEDS: ATORVASTATIN 10 MG TAB PO (20:41)
[2018-05-06] MEDS: ALBUTEROL/IPRATROPIUM (NEB) 3 ML AMP INH ×4 (02:25→21:05)
[2018-05-06] MEDS: LEVOTHYROXINE 88 MCG TAB PO (08:17)
[2018-05-06] MEDS: CALCIUM/VITAMIN D (500/200) TAB PO ×2 (08:17→20:48)
[2018-05-06] MEDS: ASPIRIN (EC) 325 MG TAB PO (08:17)
[2018-05-06] MEDS: POLYETHYLENE GLYCOL 17 GM PACKET PO (08:18)
[2018-05-06] MEDS: METHYLPREDNISOLONE 40 MG INJ IV (08:18)
[2018-05-06] MEDS: BALSAM PERU/CASTOR OIL 60 GM TUBE TOP ×2 (08:19→20:48)
[2018-05-06] MEDS: ENOXAPARIN 40 MG/0.4 ML SYG SC (08:38)
[2018-05-06 08:42] LABS: ADD MAN DIFF? NO
[2018-05-06 08:48] LABS: BASOPHILS % 0.2 % (0.0-2.0); HEMATOCRIT 35.9 % (37.0-47.0); HEMOGLOBIN 11.5 g/dl (12.0-16.0); LYMPHOCYTES # 0.6 10^3/ul (0.8-2.9); LYMPHOCYTES % 6.7 % (15.0-51.0); MEAN CORPUSCULAR HEMOGLOBIN 27.6 pg (29.0-33.0); MEAN CORPUSCULAR VOLUME 86.1 fl (82.0-101.0); MONOCYTE # 0.5 10^3/ul (0.3-0.9); MONOCYTES % 6.1 % (0.0-11.0); NEUTROPHIL # 7.7 10^3/ul (1.6-7.5); NEUTROPHILS % 86.2 % (39.0-77.0); PLATELET COUNT 287 10^3/UL (140-415); RED BLOOD COUNT 4.17 10^6/ul (4.20-5.40); RED CELL DISTRIBUTION WIDTH 13.6 % (11.5-14.5)
[2018-05-06 08:48] LABS: WHITE BLOOD COUNT 8.9 10^3/ul (4.8-10.8)
[2018-05-06 09:05] LABS: ANION GAP 4 (5-13); BLOOD UREA NITROGEN 19 mg/dl (7-20); CALCIUM 8.8 mg/dl (8.4-10.2); CARBON DIOXIDE 40 mmol/L (21-31); CHLORIDE 87 mmol/L (97-110); CREATININE 0.47 mg/dl (0.44-1.00); GLUCOSE 110 mg/dl (70-220); MAGNESIUM 2.2 mg/dl (1.7-2.5); PHOSPHORUS 4.2 mg/dl (2.5-4.9); POTASSIUM 5.1 mmol/L (3.5-5.1); SODIUM 131 mmol/L (135-144)
[2018-05-06] MEDS: BUDESONIDE (NEB) 0.5MG/2ML AMP INH ×2 (09:28→21:04)
[2018-05-06] MEDS: ATORVASTATIN 10 MG TAB PO (20:48)
[2018-05-07] MEDS: ALBUTEROL/IPRATROPIUM (NEB) 3 ML AMP INH ×4 (01:43→20:02)
[2018-05-07] MEDS: LEVOTHYROXINE 88 MCG TAB PO (08:30)
[2018-05-07] MEDS: CALCIUM/VITAMIN D (500/200) TAB PO ×2 (08:30→20:50)
[2018-05-07] MEDS: POLYETHYLENE GLYCOL 17 GM PACKET PO (08:30)
[2018-05-07] MEDS: ASPIRIN (EC) 325 MG TAB PO (08:31)
[2018-05-07] MEDS: BALSAM PERU/CASTOR OIL 60 GM TUBE TOP ×2 (08:31→20:51)
[2018-05-07] MEDS: ENOXAPARIN 40 MG/0.4 ML SYG SC (08:45)
[2018-05-07 08:50] LABS: ADD MAN DIFF? NO
[2018-05-07] MEDS: predniSONE 10 MG TAB PO (08:53)
[2018-05-07 08:59] LABS: BASOPHILS % 0.3 % (0.0-2.0); EOSINOPHILS # 0.1 10^3/ul (0.0-0.5); EOSINOPHILS % 0.6 % (0.0-7.0); HEMATOCRIT 36.2 % (37.0-47.0); HEMOGLOBIN 11.3 g/dl (12.0-16.0); LYMPHOCYTES # 1.3 10^3/ul (0.8-2.9); LYMPHOCYTES % 11.4 % (15.0-51.0); MEAN CORPUSCULAR HEMOGLOBIN 27.4 pg (29.0-33.0); MEAN CORPUSCULAR HGB CONC 31.2 g/dl (32.0-37.0); MEAN CORPUSCULAR VOLUME 87.7 fl (82.0-101.0); MONOCYTE # 1.1 10^3/ul (0.3-0.9); NEUTROPHIL # 8.7 10^3/ul (1.6-7.5); NEUTROPHILS % 76.6 % (39.0-77.0); PLATELET COUNT 310 10^3/UL (140-415); RED BLOOD COUNT 4.13 10^6/ul (4.20-5.40); RED CELL DISTRIBUTION WIDTH 13.8 % (11.5-14.5)
[2018-05-07 08:59] LABS: WHITE BLOOD COUNT 11.3 10^3/ul (4.8-10.8)
[2018-05-07] MEDS: BUDESONIDE (NEB) 0.5MG/2ML AMP INH ×2 (09:24→20:02)
[2018-05-07 09:26] LABS: BLOOD UREA NITROGEN 19 mg/dl (7-20); CALCIUM 8.6 mg/dl (8.4-10.2); CHLORIDE 84 mmol/L (97-110); CREATININE 0.53 mg/dl (0.44-1.00); GLUCOSE 84 mg/dl (70-220); MAGNESIUM 2.1 mg/dl (1.7-2.5); PHOSPHORUS 3.2 mg/dl (2.5-4.9); POTASSIUM 4.8 mmol/L (3.5-5.1); SODIUM 130 mmol/L (135-144)
[2018-05-07 09:46] LABS: ANION GAP 5 (5-13); CARBON DIOXIDE 41 mmol/L (21-31)
[2018-05-07 19:29] LABS: TROPONIN-I 0.023 ng/ml (0.000-0.120)
[2018-05-07] MEDS: ATORVASTATIN 10 MG TAB PO (20:51)
[2018-05-08 01:14] LABS: TROPONIN-I 0.037 ng/ml (0.000-0.120)
[2018-05-08] MEDS: ALBUTEROL/IPRATROPIUM (NEB) 3 ML AMP INH ×4 (02:02→19:57)
[2018-05-08] MEDS: predniSONE 10 MG TAB PO (08:37)
[2018-05-08] MEDS: POLYETHYLENE GLYCOL 17 GM PACKET PO (08:37)
[2018-05-08] MEDS: LEVOTHYROXINE 88 MCG TAB PO (08:37)
[2018-05-08] MEDS: BALSAM PERU/CASTOR OIL 60 GM TUBE TOP ×2 (08:37→20:16)
[2018-05-08] MEDS: CALCIUM/VITAMIN D (500/200) TAB PO ×2 (08:37→20:16)
[2018-05-08] MEDS: ASPIRIN (EC) 325 MG TAB PO (08:37)
[2018-05-08] MEDS: ENOXAPARIN 40 MG/0.4 ML SYG SC (08:46)
[2018-05-08] MEDS: BUDESONIDE (NEB) 0.5MG/2ML AMP INH ×2 (08:52→19:57)
[2018-05-08 10:55] LABS: ADD MAN DIFF? NO
[2018-05-08 10:58] LABS: ABNORMAL IP MESSAGE 1; BASOPHILS % 0.2 % (0.0-2.0); EOSINOPHILS % 0.1 % (0.0-7.0); HEMATOCRIT 35.9 % (37.0-47.0); HEMOGLOBIN 11.2 g/dl (12.0-16.0); LYMPHOCYTES # 0.4 10^3/ul (0.8-2.9); LYMPHOCYTES % 2.2 % (15.0-51.0); MEAN CORPUSCULAR HEMOGLOBIN 27.5 pg (29.0-33.0); MEAN CORPUSCULAR HGB CONC 31.2 g/dl (32.0-37.0); MEAN CORPUSCULAR VOLUME 88.2 fl (82.0-101.0); MEAN PLATELET VOLUME 9.4 fl (7.4-10.4); MONOCYTE # 0.9 10^3/ul (0.3-0.9); MONOCYTES % 5.5 % (0.0-11.0); NEUTROPHIL # 15.1 10^3/ul (1.6-7.5); NEUTROPHILS % 90.7 % (39.0-77.0); PLATELET COUNT 306 10^3/UL (140-415); RED BLOOD COUNT 4.07 10^6/ul (4.20-5.40); RED CELL DISTRIBUTION WIDTH 14.1 % (11.5-14.5)
[2018-05-08 10:58] LABS: WHITE BLOOD COUNT 16.7 10^3/ul (4.8-10.8)
[2018-05-08 11:05] LABS: POSITIVE DIFF @See below
[2018-05-08 11:19] LABS: ANION GAP 8 (5-13); BLOOD UREA NITROGEN 16 mg/dl (7-20); CALCIUM 8.6 mg/dl (8.4-10.2); CARBON DIOXIDE 37 mmol/L (21-31); CHLORIDE 84 mmol/L (97-110); CREATININE 0.45 mg/dl (0.44-1.00); GLUCOSE 151 mg/dl (70-220); MAGNESIUM 1.8 mg/dl (1.7-2.5); PHOSPHORUS 2.9 mg/dl (2.5-4.9); POTASSIUM 4.5 mmol/L (3.5-5.1); SODIUM 129 mmol/L (135-144)
[2018-05-08 11:46] LABS: TROPONIN-I 0.025 ng/ml (0.000-0.120)
[2018-05-08 14:09] LABS: ADD UMIC YES; UR ASCORBIC ACID NEGATIVE (NEGATIVE); UR BACTERIA FEW /HPF (NONE SEEN); UR BILIRUBIN (Dip) NEGATIVE (NEGATIVE); UR BLOOD (Dip) 3+ mg/dL (NEGATIVE); UR BUDDING YEAST MANY /HPF (NONE SEEN); UR CLARITY CLOUDY (CLEAR); UR COLOR YELLOW (YELLOW); UR GLUCOSE (Dip) NEGATIVE (NEGATIVE); UR KETONES (Dip) NEGATIVE (NEGATIVE); UR LEUKOCYTE ESTERASE (Dip) 2+ Leu/ul (NEGATIVE); UR MUCUS FEW /HPF (NONE SEEN); UR NITRITE (Dip) NEGATIVE (NEGATIVE); UR RBC > 182 /HPF (0-5); UR SPECIFIC GRAVITY (Dip) 1.014 (1.003-1.030); UR TOTAL PROTEIN (Dip) 1+ mg/dl (NEGATIVE); UR UROBILINOGEN (Dip) 2+ mg/dL (NEGATIVE); UR WBC 74 /HPF (0-5)
[2018-05-08] MEDS: CEFEPIME 1GM/50 ML (PMX) 50 ML IVPB (15:30)
[2018-05-08] MEDS: FLUCONAZOLE 100 MG/50 ML (PMX) 50 ML IVPB (17:00)
[2018-05-08] MEDS: ATORVASTATIN 10 MG TAB PO (20:16)
[2018-05-09] MEDS: CEFEPIME 1GM/50 ML (PMX) 50 ML IVPB ×3 (00:38→20:07)
[2018-05-09] MEDS: ALBUTEROL/IPRATROPIUM (NEB) 3 ML AMP INH ×4 (01:06→20:08)
[2018-05-09] MEDS: LEVOTHYROXINE 88 MCG TAB PO (07:18)
[2018-05-09] MEDS: ENOXAPARIN 40 MG/0.4 ML SYG SC (08:40)
[2018-05-09] MEDS: predniSONE 20 MG TAB PO (08:41)
[2018-05-09] MEDS: CALCIUM/VITAMIN D (500/200) TAB PO ×2 (08:41→20:06)
[2018-05-09] MEDS: BALSAM PERU/CASTOR OIL 60 GM TUBE TOP ×2 (08:41→20:07)
[2018-05-09] MEDS: ASPIRIN (EC) 325 MG TAB PO (08:41)
[2018-05-09] MEDS: POLYETHYLENE GLYCOL 17 GM PACKET PO (08:41)
[2018-05-09 08:54] LABS: ADD MAN DIFF? NO
[2018-05-09] MEDS: BUDESONIDE (NEB) 0.5MG/2ML AMP INH ×2 (08:55→20:08)
[2018-05-09 09:02] LABS: WHITE BLOOD COUNT 14.7 10^3/ul (4.8-10.8)
[2018-05-09 09:02] LABS: BASOPHILS % 0.2 % (0.0-2.0); EOSINOPHILS # 0.1 10^3/ul (0.0-0.5); EOSINOPHILS % 0.3 % (0.0-7.0); HEMATOCRIT 35.4 % (37.0-47.0); HEMOGLOBIN 11.1 g/dl (12.0-16.0); LYMPHOCYTES # 0.7 10^3/ul (0.8-2.9); MEAN CORPUSCULAR HEMOGLOBIN 27.5 pg (29.0-33.0); MEAN CORPUSCULAR HGB CONC 31.4 g/dl (32.0-37.0); MEAN CORPUSCULAR VOLUME 87.8 fl (82.0-101.0); MEAN PLATELET VOLUME 9.9 fl (7.4-10.4); MONOCYTE # 0.8 10^3/ul (0.3-0.9); MONOCYTES % 5.7 % (0.0-11.0); NEUTROPHILS % 88.1 % (39.0-77.0); PLATELET COUNT 311 10^3/UL (140-415); RED BLOOD COUNT 4.03 10^6/ul (4.20-5.40); RED CELL DISTRIBUTION WIDTH 14.2 % (11.5-14.5)
[2018-05-09 09:21] LABS: ANION GAP 3 (5-13); BLOOD UREA NITROGEN 15 mg/dl (7-20); CALCIUM 8.9 mg/dl (8.4-10.2); CARBON DIOXIDE 39 mmol/L (21-31); CHLORIDE 89 mmol/L (97-110); CREATININE 0.46 mg/dl (0.44-1.00); GLUCOSE 94 mg/dl (70-220); PHOSPHORUS 3.2 mg/dl (2.5-4.9); POTASSIUM 4.5 mmol/L (3.5-5.1); SODIUM 131 mmol/L (135-144)
[2018-05-09 09:26] LABS: TROPONIN-I 0.028 ng/ml (0.000-0.120)
[2018-05-09] MEDS: FLUCONAZOLE 100 MG/50 ML (PMX) 50 ML IVPB (17:02)
[2018-05-09] MEDS: ATORVASTATIN 10 MG TAB PO (20:07)
[2018-05-10] MEDS: ALBUTEROL/IPRATROPIUM (NEB) 3 ML AMP INH ×4 (01:02→19:29)
[2018-05-10] MEDS: LORAZEPAM 2 MG INJ IV (06:48)
[2018-05-10] MEDS: LEVOTHYROXINE 88 MCG TAB PO (07:00)
[2018-05-10] MEDS: POLYETHYLENE GLYCOL 17 GM PACKET PO (08:56)
[2018-05-10] MEDS: BALSAM PERU/CASTOR OIL 60 GM TUBE TOP ×2 (08:56→20:31)
[2018-05-10] MEDS: ENOXAPARIN 40 MG/0.4 ML SYG SC (08:58)
[2018-05-10 08:59] LABS: ADD MAN DIFF? NO
[2018-05-10] MEDS: ALPRAZOLAM 0.25 MG TAB PO (09:00)
[2018-05-10] MEDS: CEFEPIME 1GM/50 ML (PMX) 50 ML IVPB ×2 (09:00→20:30)
[2018-05-10] MEDS: predniSONE 20 MG TAB PO (09:00)
[2018-05-10] MEDS: ASPIRIN (EC) 325 MG TAB PO (09:00)
[2018-05-10] MEDS: CALCIUM/VITAMIN D (500/200) TAB PO ×2 (09:00→20:31)
[2018-05-10 09:02] LABS: WHITE BLOOD COUNT 11.5 10^3/ul (4.8-10.8)
[2018-05-10 09:02] LABS: BASOPHILS % 0.1 % (0.0-2.0); EOSINOPHILS # 0.1 10^3/ul (0.0-0.5); EOSINOPHILS % 0.5 % (0.0-7.0); HEMATOCRIT 31.5 % (37.0-47.0); HEMOGLOBIN 10.1 g/dl (12.0-16.0); LYMPHOCYTES # 0.8 10^3/ul (0.8-2.9); LYMPHOCYTES % 6.5 % (15.0-51.0); MEAN CORPUSCULAR HEMOGLOBIN 27.7 pg (29.0-33.0); MEAN CORPUSCULAR HGB CONC 32.1 g/dl (32.0-37.0); MEAN CORPUSCULAR VOLUME 86.3 fl (82.0-101.0); MEAN PLATELET VOLUME 10.2 fl (7.4-10.4); MONOCYTE # 0.7 10^3/ul (0.3-0.9); MONOCYTES % 5.7 % (0.0-11.0); NEUTROPHIL # 9.9 10^3/ul (1.6-7.5); NEUTROPHILS % 86.6 % (39.0-77.0); PLATELET COUNT 308 10^3/UL (140-415); RED BLOOD COUNT 3.65 10^6/ul (4.20-5.40); RED CELL DISTRIBUTION WIDTH 14.5 % (11.5-14.5)
[2018-05-10] MEDS: BUDESONIDE (NEB) 0.5MG/2ML AMP INH ×2 (09:25→19:29)
[2018-05-10 09:38] LABS: ANION GAP 6 (5-13); BLOOD UREA NITROGEN 14 mg/dl (7-20); CALCIUM 8.4 mg/dl (8.4-10.2); CARBON DIOXIDE 36 mmol/L (21-31); CHLORIDE 88 mmol/L (97-110); CREATININE 0.49 mg/dl (0.44-1.00); GLUCOSE 92 mg/dl (70-220); MAGNESIUM 1.9 mg/dl (1.7-2.5); PHOSPHORUS 2.9 mg/dl (2.5-4.9); POTASSIUM 4.3 mmol/L (3.5-5.1); SODIUM 130 mmol/L (135-144)
[2018-05-10] MEDS: FLUCONAZOLE 100 MG/50 ML (PMX) 50 ML IVPB (16:23)
[2018-05-10] MEDS: ATORVASTATIN 10 MG TAB PO (20:31)
[2018-05-11] MEDS: ALBUTEROL/IPRATROPIUM (NEB) 3 ML AMP INH ×4 (01:07→20:02)
[2018-05-11] MEDS: BUDESONIDE (NEB) 0.5MG/2ML AMP INH ×2 (08:11→20:02)
[2018-05-11] MEDS: CEFEPIME 1GM/50 ML (PMX) 50 ML IVPB ×2 (08:38→20:48)
[2018-05-11] MEDS: BALSAM PERU/CASTOR OIL 60 GM TUBE TOP ×2 (08:38→20:49)
[2018-05-11] MEDS: LEVOTHYROXINE 88 MCG TAB PO (08:38)
[2018-05-11] MEDS: predniSONE 20 MG TAB PO (08:38)
[2018-05-11] MEDS: CALCIUM/VITAMIN D (500/200) TAB PO ×2 (08:38→20:48)
[2018-05-11] MEDS: POLYETHYLENE GLYCOL 17 GM PACKET PO (08:44)
[2018-05-11 09:00] LABS: Allen Test ACCEPTAB; Arterial Base Excess 5.8 mmol/L (-3.0-3); Arterial Blood Gas Oxygen Sat 98.3 mmHG (95.0-100.0); Arterial COHb 0.3 % (0.0-3.0); Arterial Fraction of Oxyhgb 97.8 % (93.0-99.0); Arterial HCO3 32.8 mmol/L (22.0-26.0); Arterial MetHb 0.2 % (0.0-1.5); Arterial pCO2 60.3 mmhg (35-45); MODE NASAL CANNULA; Site Right Radial
[2018-05-11 10:06] LABS: ADD MAN DIFF? NO
[2018-05-11 10:11] LABS: WHITE BLOOD COUNT 7.6 10^3/ul (4.8-10.8)
[2018-05-11 10:12] LABS: BASOPHILS % 0.1 % (0.0-2.0); EOSINOPHILS # 0.1 10^3/ul (0.0-0.5); EOSINOPHILS % 1.1 % (0.0-7.0); HEMATOCRIT 31.6 % (37.0-47.0); HEMOGLOBIN 9.7 g/dl (12.0-16.0); LYMPHOCYTES # 0.6 10^3/ul (0.8-2.9); LYMPHOCYTES % 8.5 % (15.0-51.0); MEAN CORPUSCULAR HEMOGLOBIN 26.9 pg (29.0-33.0); MEAN CORPUSCULAR HGB CONC 30.7 g/dl (32.0-37.0); MEAN CORPUSCULAR VOLUME 87.5 fl (82.0-101.0); MEAN PLATELET VOLUME 9.7 fl (7.4-10.4); MONOCYTE # 0.4 10^3/ul (0.3-0.9); MONOCYTES % 5.8 % (0.0-11.0); NEUTROPHIL # 6.3 10^3/ul (1.6-7.5); NEUTROPHILS % 83.8 % (39.0-77.0); PLATELET COUNT 312 10^3/UL (140-415); RED BLOOD COUNT 3.61 10^6/ul (4.20-5.40); RED CELL DISTRIBUTION WIDTH 14.4 % (11.5-14.5)
[2018-05-11 10:33] LABS: ANION GAP -1 (5-13); BLOOD UREA NITROGEN 9 mg/dl (7-20); CALCIUM 8.6 mg/dl (8.4-10.2); CARBON DIOXIDE 38 mmol/L (21-31); CHLORIDE 90 mmol/L (97-110); CREATININE 0.39 mg/dl (0.44-1.00); GLUCOSE 113 mg/dl (70-220); MAGNESIUM 1.9 mg/dl (1.7-2.5); POTASSIUM 4.2 mmol/L (3.5-5.1); SODIUM 127 mmol/L (135-144)
[2018-05-11] MEDS: FLUCONAZOLE 100 MG/50 ML (PMX) 50 ML IVPB (16:56)
[2018-05-11] MEDS: ATORVASTATIN 10 MG TAB PO (20:48)
[2018-05-12] MEDS: ALBUTEROL/IPRATROPIUM (NEB) 3 ML AMP INH ×4 (01:01→20:21)
[2018-05-12 06:21] LABS: ADD MAN DIFF? NO
[2018-05-12] MEDS: LEVOTHYROXINE 88 MCG TAB PO (06:29)
[2018-05-12 06:32] LABS: WHITE BLOOD COUNT 7.6 10^3/ul (4.8-10.8)
[2018-05-12 06:32] LABS: BASOPHILS % 0.1 % (0.0-2.0); EOSINOPHILS # 0.1 10^3/ul (0.0-0.5); EOSINOPHILS % 1.1 % (0.0-7.0); HEMATOCRIT 34.4 % (37.0-47.0); HEMOGLOBIN 10.9 g/dl (12.0-16.0); LYMPHOCYTES # 0.9 10^3/ul (0.8-2.9); LYMPHOCYTES % 11.5 % (15.0-51.0); MEAN CORPUSCULAR HEMOGLOBIN 27.3 pg (29.0-33.0); MEAN CORPUSCULAR HGB CONC 31.7 g/dl (32.0-37.0); MEAN CORPUSCULAR VOLUME 86.2 fl (82.0-101.0); MEAN PLATELET VOLUME 9.8 fl (7.4-10.4); MONOCYTE # 0.6 10^3/ul (0.3-0.9); MONOCYTES % 7.7 % (0.0-11.0); NEUTROPHILS % 78.8 % (39.0-77.0); PLATELET COUNT 304 10^3/UL (140-415); RED BLOOD COUNT 3.99 10^6/ul (4.20-5.40); RED CELL DISTRIBUTION WIDTH 14.3 % (11.5-14.5)
[2018-05-12 07:18] LABS: ANION GAP 2 (5-13); BLOOD UREA NITROGEN 7 mg/dl (7-20); CALCIUM 8.8 mg/dl (8.4-10.2); CARBON DIOXIDE 38 mmol/L (21-31); CHLORIDE 87 mmol/L (97-110); GLUCOSE 92 mg/dl (70-220); MAGNESIUM 1.9 mg/dl (1.7-2.5); PHOSPHORUS 2.7 mg/dl (2.5-4.9); POTASSIUM 4.8 mmol/L (3.5-5.1); SODIUM 127 mmol/L (135-144)
[2018-05-12] MEDS: POLYETHYLENE GLYCOL 17 GM PACKET PO (09:00)
[2018-05-12] MEDS: BUDESONIDE (NEB) 0.5MG/2ML AMP INH ×2 (09:18→20:21)
[2018-05-12] MEDS: predniSONE 20 MG TAB PO (09:45)
[2018-05-12] MEDS: CALCIUM/VITAMIN D (500/200) TAB PO ×2 (09:45→21:08)
[2018-05-12] MEDS: CEFEPIME 1GM/50 ML (PMX) 50 ML IVPB (09:49)
[2018-05-12] MEDS: BALSAM PERU/CASTOR OIL 60 GM TUBE TOP ×2 (09:53→21:09)
[2018-05-12] MEDS: FLUCONAZOLE 100 MG/50 ML (PMX) 50 ML IVPB (16:11)
[2018-05-12] MEDS: ATORVASTATIN 10 MG TAB PO (21:08)
[2018-05-13 00:21] LABS: Allen Test ACCEPTAB; Arterial Base Excess 10.6 mmol/L (-3.0-3); Arterial Blood Gas Oxygen Sat 99.2 mmHG (95.0-100.0); Arterial COHb 0.4 % (0.0-3.0); Arterial Fraction of Oxyhgb 98.6 % (93.0-99.0); Arterial HCO3 37.3 mmol/L (22.0-26.0); Arterial MetHb 0.2 % (0.0-1.5); Arterial pCO2 60.5 mmhg (35-45); MODE NASAL CANNULA; Site Right Radial
[2018-05-13] MEDS: ALBUTEROL/IPRATROPIUM (NEB) 3 ML AMP INH ×4 (01:13→20:11)
[2018-05-13] MEDS: LEVOTHYROXINE 88 MCG TAB PO (06:44)
[2018-05-13] MEDS: CALCIUM/VITAMIN D (500/200) TAB PO ×2 (08:31→21:02)
[2018-05-13] MEDS: BALSAM PERU/CASTOR OIL 60 GM TUBE TOP ×2 (08:31→21:06)
[2018-05-13] MEDS: predniSONE 20 MG TAB PO (08:31)
[2018-05-13] MEDS: POLYETHYLENE GLYCOL 17 GM PACKET PO (08:32)
[2018-05-13 09:15] LABS: ADD MAN DIFF? NO
[2018-05-13 09:18] LABS: WHITE BLOOD COUNT 6.8 10^3/ul (4.8-10.8)
[2018-05-13 09:18] LABS: BASOPHILS % 0.1 % (0.0-2.0); EOSINOPHILS # 0.1 10^3/ul (0.0-0.5); HEMATOCRIT 33.4 % (37.0-47.0); HEMOGLOBIN 10.8 g/dl (12.0-16.0); LYMPHOCYTES # 0.8 10^3/ul (0.8-2.9); LYMPHOCYTES % 12.1 % (15.0-51.0); MEAN CORPUSCULAR HEMOGLOBIN 28.3 pg (29.0-33.0); MEAN CORPUSCULAR HGB CONC 32.3 g/dl (32.0-37.0); MEAN CORPUSCULAR VOLUME 87.7 fl (82.0-101.0); MEAN PLATELET VOLUME 9.1 fl (7.4-10.4); MONOCYTE # 0.4 10^3/ul (0.3-0.9); MONOCYTES % 6.5 % (0.0-11.0); NEUTROPHIL # 5.4 10^3/ul (1.6-7.5); NEUTROPHILS % 79.6 % (39.0-77.0); PLATELET COUNT 288 10^3/UL (140-415); RED BLOOD COUNT 3.81 10^6/ul (4.20-5.40); RED CELL DISTRIBUTION WIDTH 14.5 % (11.5-14.5)
[2018-05-13 09:39] LABS: ANION GAP 3 (5-13); BLOOD UREA NITROGEN 11 mg/dl (7-20); CALCIUM 8.8 mg/dl (8.4-10.2); CARBON DIOXIDE 38 mmol/L (21-31); CHLORIDE 87 mmol/L (97-110); GLUCOSE 117 mg/dl (70-220); MAGNESIUM 1.9 mg/dl (1.7-2.5); PHOSPHORUS 3.4 mg/dl (2.5-4.9); POTASSIUM 4.3 mmol/L (3.5-5.1); SODIUM 128 mmol/L (135-144)
[2018-05-13] MEDS: BUDESONIDE (NEB) 0.5MG/2ML AMP INH ×2 (10:12→20:11)
[2018-05-13] MEDS: FLUCONAZOLE 100 MG/50 ML (PMX) 50 ML IVPB (18:10)
[2018-05-13] MEDS: ATORVASTATIN 10 MG TAB PO (21:00)
[2018-05-14] MEDS: ALBUTEROL/IPRATROPIUM (NEB) 3 ML AMP INH ×4 (01:26→19:05)
[2018-05-14] MEDS: LEVOTHYROXINE 88 MCG TAB PO (07:58)
[2018-05-14] MEDS: POLYETHYLENE GLYCOL 17 GM PACKET PO (08:39)
[2018-05-14] MEDS: predniSONE 20 MG TAB PO (08:39)
[2018-05-14] MEDS: CALCIUM/VITAMIN D (500/200) TAB PO ×2 (08:39→20:26)
[2018-05-14] MEDS: BALSAM PERU/CASTOR OIL 60 GM TUBE TOP ×2 (08:39→20:26)
[2018-05-14 09:19] LABS: ADD MAN DIFF? NO
[2018-05-14 09:31] LABS: WHITE BLOOD COUNT 5.9 10^3/ul (4.8-10.8)
[2018-05-14 09:31] LABS: BASOPHILS % 0.2 % (0.0-2.0); EOSINOPHILS # 0.1 10^3/ul (0.0-0.5); EOSINOPHILS % 1.5 % (0.0-7.0); HEMATOCRIT 33.3 % (37.0-47.0); HEMOGLOBIN 10.3 g/dl (12.0-16.0); LYMPHOCYTES # 0.6 10^3/ul (0.8-2.9); LYMPHOCYTES % 10.3 % (15.0-51.0); MEAN CORPUSCULAR HEMOGLOBIN 27.3 pg (29.0-33.0); MEAN CORPUSCULAR HGB CONC 30.9 g/dl (32.0-37.0); MEAN CORPUSCULAR VOLUME 88.3 fl (82.0-101.0); MEAN PLATELET VOLUME 9.3 fl (7.4-10.4); MONOCYTE # 0.4 10^3/ul (0.3-0.9); MONOCYTES % 6.1 % (0.0-11.0); NEUTROPHIL # 4.8 10^3/ul (1.6-7.5); NEUTROPHILS % 81.6 % (39.0-77.0); PLATELET COUNT 267 10^3/UL (140-415); RED BLOOD COUNT 3.77 10^6/ul (4.20-5.40); RED CELL DISTRIBUTION WIDTH 14.5 % (11.5-14.5)
[2018-05-14 09:50] LABS: ANION GAP 5 (5-13); BLOOD UREA NITROGEN 12 mg/dl (7-20); CALCIUM 8.8 mg/dl (8.4-10.2); CARBON DIOXIDE 38 mmol/L (21-31); CHLORIDE 84 mmol/L (97-110); CREATININE 0.52 mg/dl (0.44-1.00); GLUCOSE 97 mg/dl (70-220); MAGNESIUM 1.9 mg/dl (1.7-2.5); PHOSPHORUS 3.6 mg/dl (2.5-4.9); POTASSIUM 4.4 mmol/L (3.5-5.1); SODIUM 127 mmol/L (135-144)
[2018-05-14] MEDS: BUDESONIDE (NEB) 0.5MG/2ML AMP INH ×2 (09:51→19:06)
[2018-05-14] MEDS ORDERED: VITAMIN A & D 5 GM OINT PACKET TOP (15:35)
[2018-05-14] MEDS: FLUCONAZOLE 100 MG/50 ML (PMX) 50 ML IVPB (17:07)
[2018-05-14 19:22] LABS: SODIUM,URINE RANDOM 156 mmol/L (30-90)
[2018-05-14] MEDS: ATORVASTATIN 10 MG TAB PO (20:26)
[2018-05-14 20:30] LABS: OSMOLALITY,URINE 285 mOsm/kg (250-1200)
[2018-05-15] MEDS: ALBUTEROL/IPRATROPIUM (NEB) 3 ML AMP INH ×4 (01:00→19:40)
[2018-05-15] MEDS: LEVOTHYROXINE 88 MCG TAB PO (06:56)
[2018-05-15] MEDS: POLYETHYLENE GLYCOL 17 GM PACKET PO (09:00)
[2018-05-15] MEDS: predniSONE 20 MG TAB PO (09:21)
[2018-05-15] MEDS: CALCIUM/VITAMIN D (500/200) TAB PO ×2 (09:21→21:55)
[2018-05-15] MEDS: BUDESONIDE (NEB) 0.5MG/2ML AMP INH ×2 (09:46→19:50)
[2018-05-15] MEDS: BALSAM PERU/CASTOR OIL 60 GM TUBE TOP ×2 (10:19→21:56)
[2018-05-15 10:20] LABS: BLOOD UREA NITROGEN 8 mg/dl (7-20); CALCIUM 8.8 mg/dl (8.4-10.2); CHLORIDE 84 mmol/L (97-110); CREATININE 0.48 mg/dl (0.44-1.00); GLUCOSE 96 mg/dl (70-220); MAGNESIUM 1.9 mg/dl (1.7-2.5); PHOSPHORUS 2.9 mg/dl (2.5-4.9); POTASSIUM 5.2 mmol/L (3.5-5.1); SODIUM 127 mmol/L (135-144)
[2018-05-15] MEDS: SODIUM CHLORIDE 1 GM TAB PO ×3 (10:26→21:55)
[2018-05-15 10:27] LABS: ANION GAP 3 (5-13)
[2018-05-15 10:28] LABS: CARBON DIOXIDE 40 mmol/L (21-31)
[2018-05-15] MEDS ORDERED: DEXTROSE 50% 50 ML SYRINGE IV (11:00)
[2018-05-15] MEDS: INSULIN REGULAR, HUMAN 100 UNIT/1 ML 3ML VIAL IVP (12:19)
[2018-05-15] MEDS: ATORVASTATIN 10 MG TAB PO (21:55)
[2018-05-16] MEDS: ALBUTEROL/IPRATROPIUM (NEB) 3 ML AMP INH ×5 (01:50→19:41)
[2018-05-16] MEDS: LEVOTHYROXINE 88 MCG TAB PO (06:29)
[2018-05-16] MEDS: BUDESONIDE (NEB) 0.5MG/2ML AMP INH ×2 (08:17→19:41)
[2018-05-16] MEDS: predniSONE 20 MG TAB PO (08:40)
[2018-05-16] MEDS: SODIUM CHLORIDE 1 GM TAB PO ×3 (08:40→21:25)
[2018-05-16] MEDS: CALCIUM/VITAMIN D (500/200) TAB PO ×2 (08:40→21:25)
[2018-05-16] MEDS: POLYETHYLENE GLYCOL 17 GM PACKET PO (08:40)
[2018-05-16] MEDS: BALSAM PERU/CASTOR OIL 60 GM TUBE TOP ×2 (08:40→21:25)
[2018-05-16 09:10] LABS: BLOOD UREA NITROGEN 11 mg/dl (7-20); CALCIUM 8.8 mg/dl (8.4-10.2); CHLORIDE 84 mmol/L (97-110); CREATININE 0.47 mg/dl (0.44-1.00); GLUCOSE 113 mg/dl (70-220); MAGNESIUM 1.8 mg/dl (1.7-2.5); PHOSPHORUS 3.6 mg/dl (2.5-4.9); POTASSIUM 4.5 mmol/L (3.5-5.1); SODIUM 126 mmol/L (135-144)
[2018-05-16 09:21] LABS: ANION GAP 6 (5-13); CARBON DIOXIDE 36 mmol/L (21-31)
[2018-05-16] MEDS: SOD CHLORIDE 0.9% 1,000 ML IV (15:00)
[2018-05-16] MEDS: ATORVASTATIN 10 MG TAB PO (21:24)
[2018-05-17] MEDS: ALBUTEROL/IPRATROPIUM (NEB) 3 ML AMP INH ×4 (01:08→19:34)
[2018-05-17] MEDS: LEVOTHYROXINE 88 MCG TAB PO (07:00)
[2018-05-17] MEDS: BUDESONIDE (NEB) 0.5MG/2ML AMP INH ×2 (08:15→19:34)
[2018-05-17] MEDS: SODIUM CHLORIDE 1 GM TAB PO ×3 (09:39→20:19)
[2018-05-17] MEDS: BALSAM PERU/CASTOR OIL 60 GM TUBE TOP ×2 (09:39→20:20)
[2018-05-17] MEDS: predniSONE 20 MG TAB PO (09:39)
[2018-05-17] MEDS: CALCIUM/VITAMIN D (500/200) TAB PO ×2 (09:39→20:19)
[2018-05-17] MEDS: POLYETHYLENE GLYCOL 17 GM PACKET PO (09:39)
[2018-05-17 11:09] LABS: ADD MAN DIFF? NO
[2018-05-17] MEDS: SOD CHLORIDE 0.9% 1,000 ML IV (11:11)
[2018-05-17 11:12] LABS: WHITE BLOOD COUNT 5.8 10^3/ul (4.8-10.8)
[2018-05-17 11:12] LABS: BASOPHILS % 0.3 % (0.0-2.0); EOSINOPHILS # 0.1 10^3/ul (0.0-0.5); EOSINOPHILS % 1.4 % (0.0-7.0); HEMATOCRIT 33.6 % (37.0-47.0); HEMOGLOBIN 10.4 g/dl (12.0-16.0); LYMPHOCYTES # 0.7 10^3/ul (0.8-2.9); LYMPHOCYTES % 12.7 % (15.0-51.0); MEAN CORPUSCULAR HEMOGLOBIN 27.5 pg (29.0-33.0); MEAN CORPUSCULAR VOLUME 88.9 fl (82.0-101.0); MEAN PLATELET VOLUME 9.3 fl (7.4-10.4); MONOCYTE # 0.2 10^3/ul (0.3-0.9); MONOCYTES % 3.5 % (0.0-11.0); NEUTROPHIL # 4.7 10^3/ul (1.6-7.5); NEUTROPHILS % 81.4 % (39.0-77.0); PLATELET COUNT 161 10^3/UL (140-415); RED BLOOD COUNT 3.78 10^6/ul (4.20-5.40); RED CELL DISTRIBUTION WIDTH 14.6 % (11.5-14.5)
[2018-05-17 11:34] LABS: ANION GAP 6 (5-13); BLOOD UREA NITROGEN 10 mg/dl (7-20); CALCIUM 8.7 mg/dl (8.4-10.2); CARBON DIOXIDE 37 mmol/L (21-31); CHLORIDE 85 mmol/L (97-110); CREATININE 0.47 mg/dl (0.44-1.00); GLUCOSE 114 mg/dl (70-220); MAGNESIUM 1.8 mg/dl (1.7-2.5); PHOSPHORUS 3.2 mg/dl (2.5-4.9); POTASSIUM 4.6 mmol/L (3.5-5.1); SODIUM 128 mmol/L (135-144)
[2018-05-17] MEDS: ATORVASTATIN 10 MG TAB PO (20:19)
[2018-05-18] MEDS: SOD CHLORIDE 0.9% 1,000 ML IV ×2 (00:50→07:00)
[2018-05-18] MEDS: ALBUTEROL/IPRATROPIUM (NEB) 3 ML AMP INH ×4 (01:26→19:43)
[2018-05-18 06:34] LABS: ANION GAP 5 (5-13); BLOOD UREA NITROGEN 11 mg/dl (7-20); CALCIUM 8.6 mg/dl (8.4-10.2); CARBON DIOXIDE 38 mmol/L (21-31); CHLORIDE 86 mmol/L (97-110); CREATININE 0.44 mg/dl (0.44-1.00); GLUCOSE 110 mg/dl (70-220); MAGNESIUM 1.8 mg/dl (1.7-2.5); PHOSPHORUS 3.6 mg/dl (2.5-4.9); POTASSIUM 4.6 mmol/L (3.5-5.1); SODIUM 129 mmol/L (135-144)
[2018-05-18] MEDS: BUDESONIDE (NEB) 0.5MG/2ML AMP INH ×2 (08:07→19:43)
[2018-05-18] MEDS: POLYETHYLENE GLYCOL 17 GM PACKET PO (08:12)
[2018-05-18] MEDS: LEVOTHYROXINE 88 MCG TAB PO (08:12)
[2018-05-18] MEDS ORDERED: PENDING SANTYL ORDER FOR WOUND CARE XX (08:30)
[2018-05-18] MEDS: CALCIUM/VITAMIN D (500/200) TAB PO ×2 (09:44→20:44)
[2018-05-18] MEDS: SODIUM CHLORIDE 1 GM TAB PO ×3 (09:44→20:44)
[2018-05-18] MEDS: predniSONE 20 MG TAB PO (09:44)
[2018-05-18] MEDS: BALSAM PERU/CASTOR OIL 60 GM TUBE TOP ×3 (09:45→20:44)
[2018-05-18] MEDS: ATORVASTATIN 10 MG TAB PO (20:44)
[2018-05-19] MEDS: ALBUTEROL/IPRATROPIUM (NEB) 3 ML AMP INH ×2 (02:37→09:11)
[2018-05-19] MEDS: LEVOTHYROXINE 88 MCG TAB PO ×2 (06:57→08:32)
[2018-05-19] MEDS: predniSONE 20 MG TAB PO (08:31)
[2018-05-19] MEDS: POLYETHYLENE GLYCOL 17 GM PACKET PO (08:31)
[2018-05-19] MEDS: BALSAM PERU/CASTOR OIL 60 GM TUBE TOP (08:31)
[2018-05-19] MEDS: CALCIUM/VITAMIN D (500/200) TAB PO (08:31)
[2018-05-19] MEDS: SODIUM CHLORIDE 1 GM TAB PO ×2 (08:31→12:27)
[2018-05-19 08:56] LABS: ADD MAN DIFF? NO
[2018-05-19 08:58] LABS: WHITE BLOOD COUNT 4.4 10^3/ul (4.8-10.8)
[2018-05-19 08:58] LABS: BASOPHILS % 0.2 % (0.0-2.0); EOSINOPHILS # 0.1 10^3/ul (0.0-0.5); EOSINOPHILS % 2.3 % (0.0-7.0); HEMATOCRIT 31.6 % (37.0-47.0); HEMOGLOBIN 9.9 g/dl (12.0-16.0); LYMPHOCYTES # 0.7 10^3/ul (0.8-2.9); MEAN CORPUSCULAR HEMOGLOBIN 27.7 pg (29.0-33.0); MEAN CORPUSCULAR HGB CONC 31.3 g/dl (32.0-37.0); MEAN CORPUSCULAR VOLUME 88.3 fl (82.0-101.0); MEAN PLATELET VOLUME 9.2 fl (7.4-10.4); MONOCYTE # 0.2 10^3/ul (0.3-0.9); MONOCYTES % 4.1 % (0.0-11.0); NEUTROPHIL # 3.4 10^3/ul (1.6-7.5); NEUTROPHILS % 76.9 % (39.0-77.0); PLATELET COUNT 122 10^3/UL (140-415); RED BLOOD COUNT 3.58 10^6/ul (4.20-5.40); RED CELL DISTRIBUTION WIDTH 14.3 % (11.5-14.5)
[2018-05-19] MEDS: BUDESONIDE (NEB) 0.5MG/2ML AMP INH (09:11)
[2018-05-19 09:17] LABS: ALBUMIN 2.9 g/dl (3.3-4.9); BLOOD UREA NITROGEN 12 mg/dl (7-20); CHLORIDE 86 mmol/L (97-110); CREATININE 0.51 mg/dl (0.44-1.00); GLUCOSE 120 mg/dl (70-220); MAGNESIUM 1.8 mg/dl (1.7-2.5); PHOSPHORUS 3.5 mg/dl (2.5-4.9); POTASSIUM 4.5 mmol/L (3.5-5.1); SODIUM 130 mmol/L (135-144)
[2018-05-19 09:24] LABS: ANION GAP 6 (5-13)
[2018-05-19 09:26] LABS: CARBON DIOXIDE 38 mmol/L (21-31)
== END 2018-05-19 15:55 | disposition home health service (06) | DRG 643 ==
LOC: E/R 23:35 → TEL 04-30 09:00 → 2NE 05-18 00:04 → 6WM 04-26 02:15 → ICU 04-26 13:25
PROC: 5A09457 Assistance with Respiratory Ventilation, 24-96 Consecutive Hours, Continuous Positive Airway Pressure (ICD-10-PCS; principal; 2018-04-26)
DX: E22.2 Syndrome of inappropriate secretion of antidiuretic hormone (principal); J18.9 Pneumonia, unspecified organism; J96.22 Acute and chronic respiratory failure with hypercapnia; J96.21 Acute and chronic respiratory failure with hypoxia; G92 Toxic encephalopathy; E87.3 Alkalosis; B37.49 Other urogenital candidiasis; E87.5 Hyperkalemia; E03.9 Hypothyroidism, unspecified; E78.5 Hyperlipidemia, unspecified; F03.90 Unspecified dementia, unspecified severity, without behavioral disturbance, psychotic disturbance, mood disturbance, and anxiety; D64.9 Anemia, unspecified; J84.112 Idiopathic pulmonary fibrosis; I10 Essential (primary) hypertension; I08.8 Other rheumatic multiple valve diseases; I49.9 Cardiac arrhythmia, unspecified; R31.9 Hematuria, unspecified; R93.1 Abnormal findings on diagnostic imaging of heart and coronary circulation; E86.0 Dehydration
CPT/HCPCS: 36415; 36600; 71045; 76775; 80048; 80053; 80061; 80069; 80202; 80307; 81001; 81003; 82043; 82436; 82533; 82803; 82962; 83735; 83880; 83930; 83935; 84100; 84133; 84155; 84300; 84443; 84484; 84560; 85025; 87040-91; 87081; 87086; 88104; 88107; 92526; 92610; 93005; 93306; 94640; 94644; 94660; 94664; 94667; 94668; 96365; 96375; 97110; 97116; 97161; 97530; 99285-25